=== PATIENT | female | born 1945 | race Caucasian/White ===

== ENCOUNTER → 2023-11-14 11:07 | Outpatient (REF) | payer MEDICARE, BC, SELFPAY | LOC: HWWDC 11:07 | PROVIDERS: ATTENDING PHYSICIAN Internal Medicine | DX: Z12.31 Encounter for screening mammogram for malignant neoplasm of breast (principal) | CPT/HCPCS: 77063; 77067 ==

== ENCOUNTER 2024-05-11 19:38 | Inpatient (IN) | payer MEDICARE, BC, SELFPAY ==
[2024-05-11] VITALS (8 sets, daily range): BP systolic 128–152; BP diastolic 66–94; BMI 25.9
[2024-05-11 16:47] LABS: % Basophils 0.4 % (0-2); % Eosinophils 0.1 % (0-6); % Immature Granulocytes 0.3 % (0-0.5); % Monocytes 13.5 % (1.7-9.3); % Neutrophils 72.7 % (42.2-75.2); Absolute Lymphocytes 1.2 10^3/uL (1.2-3.4); Absolute Monocytes 1.3 10^3/uL (0.1-0.6); Hematocrit 48.2 % (37.0-47.0); Hemoglobin 14.8 g/dL (12.0-16.0); Mean Corp Hgb Conc. 30.7 g/dL (33.0-37.0); Mean Corpuscular Hgb 32.7 pg (27.0-31.0); Mean Corpuscular Volume 106.4 fL (81.0-99.0); Mean Platelet Volume 9.5 fL (7.4-10.4); Nucleated Red Blood Cells % 0 %; Platelet Count 394 10^3/uL (130-400); Red Blood Cell Count 4.53 10^6/uL (4.20-5.40); Red Cell Dist. Width 14.5 % (11.5-14.5); White Blood Cell Count 9.6 10^3/uL (4.8-10.8)
[2024-05-11 17:02] LABS: ALT (SGPT) 52 U/L (0-35); AST (SGOT) 47 U/L (14-36); Albumin 4.1 g/dl (3.5-5.0); Alkaline Phosphatase 71 U/L (38-126); Blood Urea Nitrogen 81 mg/dl (7-17); Calcium 8.2 mg/dl (8.4-10.2); Carbon Dioxide 40 mmol/L (22-30); Chloride 98 mmol/L (98-107); Estimated Creatinine Clearance 28 ml/min; Glucose 115 mg/dl (70-99); Potassium 5.1 mmol/L (3.5-5.1); Sodium 143 mmol/L (135-145); Total Bilirubin 0.4 mg/dl (0.2-1.3); Total Protein 6.8 g/dl (6.3-8.2)
--- NOTE | 2024-05-11 17:02 | ED.GENMED ---
History of Present Illness
General
Chief Complaint: Breathing Problem
Source: patient and ambulance crew
Exam Limitations: none
Time Seen by Provider: 05/11/24 16:53
Nursing documentation reviewed up to this point in time: agreed with
History of Present Illness
History of Present Illness:
78-year-old female presents emergency department complaining of shortness of breath. Oxygen saturation was 85% on room air. She is coming from [facility]. She is not on oxygen at home. She is a history of smoking.
Past History
Past History
ED Past Medical History: Hypercholesterolemia
ED Past Surgical History:
Social History
Tobacco: Smoker
Alcohol: None
Drug: None
Review of Systems
Review of Systems
Allergies reviewed?: Yes
All Other Systems: Not applicable
Constitutional: Reports no symptoms
EENT: Reports no symptoms
Respiratory: Reports cough and trouble breathing
Cardiac: Reports no symptoms
ABD/GI: Reports no symptoms
: Reports no symptoms
Musculoskeletal: Reports no symptoms
Skin: Reports no symptoms
Neurological: Reports no symptoms
Endocrine: Reports no symptoms
Hematologic/Lymphatic: Reports no symptoms
Psychiatric: Reports no symptoms
Phy Exam
Physical Exam
Physical Exam:
Physical Exam
General: Moderate respiratory distress, afebrile
Neck: supple. no meningeal signs. normal posterior pharynx
Heart: s1/s2 regular rate and rhythm, no murmur. equal radial
pulses.
HEENT: Pupils equal round reactive to light, EOMI
Lungs: Moderate respiratory distress. Decreased breath sounds and wheezing bilaterally
Abdomen: normal bowel sounds. not tender. no CVAT
Neuro: alert and oriented. no focal neurological deficits cranial nerves II through XII intact
Skin: no rash
Psychiatric: well kept. interactive and cooperative
Extremities: no edema. no calf tenderness. negative homans. good distal pulses
Scores
Heart Failure Risk
Heart Failure Risk Score: Yes
History of Stroke or TIA: No
History of intubation for respiratory distress: No
Heart rate on ED arrival >/= 110: No
SaO2 <90% on arrival on room air: Yes
HR >/=110 during 3min walk test (or too ill to perform test): Yes
ECG has acute ischemic changes: No
Urea >/=12mmol/L (BUN 33.6mg/dL): Yes
Serum CO2>/=35mmol/L: No
Troponin I or T elevated to PA Level (0.4mg/dL): No
NT-proBNP >/=5,000ng/L (5,000pg/ml): Yes
HF Risk Score: 5
Admission Status: VERY HIGH RISK 39.8% Consider admission to hospital
Course
Orders/Labs/Results
Orders:
Orders
05/11/24 Breakfast
Cholesterol Lowering
Fluid Restriction: 1200 mL/day (40 oz)
Cholesterol Lowering: Sodium, 2 Gram
05/11/24 16:26
Electrocardiogram (*1) Urgent
Reason for Study: Shortness of Breath
EKG- Treatment ONCE
05/11/24 16:36
CMP [Comprehensive Metabolic Panel] Urgent
Complete Blood Count/With Diff Urgent
05/11/24 16:54
CR Chest Portable - 1 View Urgent
Comment:
Reason For Exam: short of breath
Reason Study Needs to be Portable: Patient Unstable
05/11/24 17:31
NT-proBNP Urgent
Troponin I Urgent
05/11/24 18:39
Admit/Transfer Patient As Directed
Co-Sign Provider:
Level of Care: Inpatient admission
Assign to:: Telemetry
Physician / Group: ana
Diagnosis: new onset CHF
Reason for Telemetry: Subacute Heart Failure
Date to Stop Telemetry: 05/13/24
Time to Stop Telemetry: 11:00
Reason for Hospitalization: new onset CHF
Expected length of stay greater than two midnights?: Yes
ELOS- Estimated Length of Stay in days: 3
I certify the patient meets the requirements for IP care: Yes
Code Status As Directed
Resuscitation Status: Do not resuscitate
Reached after discussion with pt or family/Healthcare POA: Yes
Ethacrynate Sodium [Edecrin] 50 mg 0.9% Sodium Chloride 50 ml [Nss] 0 ml IV NOW
DNR Bracelet Application ONCE
PRN Pain Medication Management As Directed
May give lesser potent ordered pain med per pt: Yes
preference::
Protocol:: Medication orders for pain may be administered in a
manner that supports deferring to patient preference
when the pt is:
- Requesting an ordered lesser potent pain medication.
Least to most potent pain medications are defined
as: acetaminophen < NSAID < tramadol < opioids
(morphine, oxycodone, hydromorphone).
- Requesting a lesser dose of the same medication IF
ORDERED.
- Requesting a less intrusive route of administration
if both routes are prescribed by the provider (PO <
IV).
05/11/24 18:40
COVID-19 Antigen Stat
Source: Nasal Swab
Influenza A+B Rapid Molecular Stat
EBONIE Source: Nasal Swab
Specimen Description:
05/11/24 21:15
Heparin 5,000 units SC Q12
05/11/24 21:15
Echo 2D MMode Color/Doppler Routine
Reason for Study: heart failure
CARDIOLOGY CONSULT Routine
Consulting Provider: Ari Brody
Was physician already notified: Yes
HF DIETARY CONSULT Routine
HF EDUCATOR CONSULT Routine
Comment:
Activity As Directed
Activity Level: As Tolerated
Intake/ Output As Directed
Frequency: Per unit guidelines
Patient Education As Directed
Type: CHF folder
Comment: give on admission. Document in Interdisciplinary Education record
Sleep Apnea Assessment by RN As Directed
Comment:
Physician Instructions:
Vital Signs As Directed
Frequency: Other
Additional Instructions:: Q12 or per unit guidelines if more frequent.
Weight As Directed
Frequency: Daily
Type of Scale: Standing Scale
Comment: Daily morning weight. If unable to stand, use balanced bed scale.
Weight As Directed
Frequency: Once
Type of Scale: Standing Scale
Comment: Upon Admission. If unable to stand, use balanced bed scale.
O2 Therapy [RESP] Routine
Titrate/Wean O2 to maintain O2 sat greater than (%): 95
Pulse Ox/cont/shift [RESP] Routine
Quantity: 1
Special Instructions: Daily pulse oximetry at rest. If greater than 92% at rest also obtain pulse oximetry
while ambulating as tolerated.
Pt Eval And Treat Routine
Activity Level: As Tolerated
DX Deep Vein Thrombosis Video Routine
05/11/24 23:30
Troponin I Q6H
Comment: at admission & every 6 hours x 2 (3 total), ECG to be done with each level
05/12/24 05:30
Troponin I Q6H
Comment: at admission & every 6 hours x 2 (3 total), ECG to be done with each level
05/12/24 06:00
Basic Metabolic Panel IN AM
Cardiovascular Evaluation IN AM
Dubfl-Xgmk-Qyxqeat IN AM
Magnesium IN AM
TSH Reflex To Free T4 IN AM
05/12/24 08:00
Calcium Carbonate [Oscal [place] 500] 1,500 mg PO DAILY
Ethacrynate Sodium [Edecrin] 50 mg Empty Viaflex Container 100 ml [Viaflex Empty Container] 0 ml IV DAILY
05/13/24 06:00
Basic Metabolic Panel IN AM
05/13/24 11:00
DC Protocol for Telemetry ONCE
05/14/24 06:00
Basic Metabolic Panel IN AM
Abnormal Lab Results
05/11/24 05/11/24
16:36 17:31
Hct 48.2 H %
(37.0-47.0)
MCV 106.4 H fL
(81.0-99.0)
MCH 32.7 H pg
(27.0-31.0)
MCHC 30.7 L g/dL
(33.0-37.0)
Absolute Neuts (auto) 7.0 H 10^3/uL
(1.4-6.5)
Absolute Monos (auto) 1.3 H 10^3/uL
(0.1-0.6)
Lymphocytes % 13.0 L %
(20.5-51.1)
Monocytes % 13.5 H %
(1.7-9.3)
Carbon Dioxide 40 H mmol/L
(22-30)
BUN 81 H mg/dl
(7-17)
Creatinine 1.6 H mg/dL
(0.6-1.0)
Glucose 115 H mg/dl
(70-99)
Calcium 8.2 L mg/dl
(8.4-10.2)
AST 47 H U/L
(14-36)
ALT 52 H U/L
(0-35)
Troponin I 0.083 H* ng/ml
05/11/24 16:36
05/11/24 16:36
Vital Signs
Initial and Last Documented VS:
Initial Vital Signs
Temp Pulse Resp BP Pulse Ox
98.5 F 96 24 149/81 93
05/11/24 16:04 05/11/24 16:04 05/11/24 16:04 05/11/24 16:04 05/11/24 16:04
Last Documented Vital Signs
Temp Pulse Resp BP Pulse Ox
97.8 F 85 35 150/74 99
05/11/24 21:30 05/11/24 21:30 05/11/24 21:30 05/11/24 21:30 05/11/24 21:30
MDM/Problems Addressed
Differential Diagnosis Includes:
Pneumonia, CHF
MDM/Problems Addressed:
78-year-old female with CHF exacerbation. EKG changes with T wave inversions, denying chest pain at this time. Patient started on ethacrynic acid due to sulfa allergy.
*Radiology
Radiology exam reviewed: radiology read reviewed (Chest x-ray showed possible basilar opacity versus atelectasis)
*Pulse Oximetry
Patient hypoxic: yes
*EKG
Interpreted by ED Provider?: Yes
EKG Intrepretation Date: 05/11/24
EKG Intrepretation Time: 16:48
Interpretation: abnormal
Comparison EKG: changes noted
Heart Rate: 90
Rate: normal
Rhythm: sinus
[place]: normal axis
Interval: normal interval
QRS Pattern: normal QRS
Ischemia: T-wave inversion
*Pesticide Control Inspector Interpretation
Rate: normal
Interpretation: normal
Heart Rate: 88
Rhythm: sinus
*Critical Care Note
Total Time (30-74mins, 75-104mins- exclusive of procedures): 30
Data Reviewed
Further Testing Considered But Not Given:
CT chest not indicated
Patient Management
Social determinants of health affecting care: Living situation and Strong social support
Discussion with other providers: Hospitalist
Escalation/DeEscalation of care consider admission/obs:
Admission indicated
ED Attending Note
-
Portions of this chart may have been created with voice recognition software.� Occasional wrong word or��sound alike� substitutions may have occurred due to the inherent limitations of voice recognition software.
Discharge Plan
Departure
Patient Disposition: Admit
Date of Disposition: 05/11/24
Time of Disposition: 18:21
Admit to: Telemetry
Presentation/result/management discussed w/ accepting MD/DO: Hospitalist
Patient with high blood pressure during this ER visit?: Yes
Condition: Fair
Discharge Problem:
Acute exacerbation of CHF (congestive heart failure)
Interventions
Interventions:
*Risk Screen - Suicide Last Done: 05/11/24 22:02
*General Assessment Last Done: 05/11/24 16:04
*Neglect/Abuse Screening Last Done: 05/11/24 16:04
*ED COVID-19 Vaccine History Last Done: 05/11/24 16:04
*Nursing Disposition Last Done: 05/11/24 21:13
ED- Cardiac Assessment Last Done: 05/11/24 16:24
ED- Pulmonary Assessment Last Done: 05/11/24 16:24
Discharge Date and Time
Discharge Date/Time: 05/11/24 21:15
[2024-05-11 18:06] LABS: NT-proBNP 9060 pg/ml; Troponin I 0.083 ng/ml
--- NOTE | 2024-05-11 18:22 | HPS.HSE ---
Family Physician
-
Family Physician: RUBEN WALLS MD
Chief Complaint
-
Short of breath
History of Present Illness
78-year-old female with past medical history for PAD, PVD, breast cancer presented to us with short of breath for past few days. Short of breath worse with exertion. Patient denied any chest pain. Patient denied lower extremities edema. denied
headache, dizziness or syncope. Patient denied fever, chills, cough, congestion. Patient denied abdominal pain, nausea, vomiting, diarrhea. Patient denied dysuria hematuria,
Noted to have elevated BNP, chest x-ray with impression of small patchy right basilar opacity suggestive, no atelectasis and/or pneumonia. Patient is requiring 6 L.
Admitting for further management.
Medical History
Past Medical History
Past Medical History: Reports Other
Additional Past Medical History:
Peripheral artery disease
PVD
Breast cancer
Psoriasis
Osteoporosis
Past Surgical History: Reports Other
Additional Past Surgical History:
Left breast lumpectomy
Tonsillectomy
Lower lower EXTR and stent
Social History
Tobacco: Former Smoker
Alcohol: None
Drug: None
Living: Assisted Living
Family History
Family History: Not pertinent
Allergies / Home Medications
Allergies reflects when Allergies were last updated in [facility]
Home Medications with original date entered in [facility]
Allergy/Medication List:
Allergies
Allergy/AdvReac Type Severity Reaction Status Date / Time
acetaminophen [From Percocet] Allergy constipatio Verified 10/31/19 06:31
n
aspirin [From Percodan] Allergy constipatio Verified 10/31/19 06:31
n
oxycodone HCl [From Percocet] Allergy constipatio Verified 10/31/19 06:31
n
oxycodone terephthalate Allergy constipatio Verified 10/31/19 06:31
[From Percodan] n
Sulfa (Sulfonamide Allergy stopped Verified 10/31/19 06:31
Antibiotics) breathing
Home Medications
denosumab 60 mg/mL subcutaneous syringe (Prolia) 60 mg SQ [id number] 10/31/19
calcium carbonate (Calcium 600) 600 mg PO DAILY 05/11/24
Review of Systems
-
Constitutional: Reports No Symptoms
EENT: Reports No Symptoms
Respiratory: Reports Trouble Breathing
Cardiac: Reports No Symptoms
Abdomen/GI: Reports No Symptoms
: Reports No Symptoms
Musculoskeletal: Reports No Symptoms
Skin: Reports No Symptoms
Neurological: Reports No Symptoms
Endocrine: Reports No Symptoms
Hematologic/Lymphatic: Reports No Symptoms
Psych: Reports No Symptoms
Physical Exam
Vital Signs
Vital Signs
Temp Pulse Resp BP Pulse Ox
98.5 F 87 31 136/94 96
05/11/24 16:04 05/11/24 18:00 05/11/24 18:00 05/11/24 18:00 05/11/24 18:00
Physical Exam
General: Well Developed, Well Nourished and No Apparent Distress
HEENT: NormoCephalic, Moist mucous membranes and Atraumatic
Respiratory: Decreased Breath Sounds
Cardiac: S1/S2 and Regular Rhythm; No Murmur or Rub
GI: Soft, Non Tender, Non Distended and Normal Bowel Sounds; No Organomegaly
Rectal: Deferred by Provider
Musculoskeletal: No Clubbing, No Cyanosis and No Edema
Skin: No Rash
Neuro: AO x 3 and Nonfocal/grossly intact
Psych: Calm
Laboratory Results
-
05/11/24 16:36
05/11/24 16:36
Laboratory Results
Total Bilirubin 0.4 mg/dl (0.2-1.3) 05/11/24 16:36
AST 47 U/L (14-36) H 05/11/24 16:36
ALT 52 U/L (0-35) H 05/11/24 16:36
Alkaline Phosphatase 71 U/L (38-126) 05/11/24 16:36
Troponin I 0.083 ng/ml H* 05/11/24 17:31
Data Reviewed
-
Diagnostic Radiology: Report Reviewed by me
Lab Data: Labs Reviewed by me
Impression/Plan
-
# Acute hypoxic respiratory failure likely from new onset CHF
-BNP 9060
-Chest x-ray with impression of small patchy right basilar opacity such as segmental atelectasis and/or pneumonia
-Patient requiring 6 L of oxygen
-Continue supplemental oxygen to keep sat 80-92
-Wean as tolerated
-Diuretics continued
-Strict SU-Daily weight
-Fluid restriction
-Obtain echo
-Cardiology consulted
Acute kidney injury likely from fluid overload
-Creatinine 1.6
-Continue to monitor
# Hepatic congestion
-AST 47, ALT 52
-Patient denied any abdominal pain
-Continue to monitor
# Troponin elevation likely demand ischemia from CHF
-Trop 0.0 83
-Patient denied chest pain
-Continue to trend Trope EKG with impression of normal sinus rhythm with sinus arrhythmia
History of PAD/PVD
#DVT prophylaxis
-Heparin subcu
# CODE STATUS
-DNR
--- NOTE | 2024-05-11 18:45 | W.PN.UPDATE ---
Update Note
Progress Note Update
This is an addendum to the H&P written by Emily Kim on 05/11/2024. Patient seen and examined independently with TITLE CHECKER.
78-year-old female past medical history of peripheral arterial disease status post angioplasty/left SFA stent, carotid stenosis, breast cancer presenting with shortness of breath.
Patient requiring 6 L oxygen.
Labs show SAVAGE with creatinine 1.6. Mild transaminitis. Cardiac BNP of 9000. Troponin 0.083. EKG shows normal sinus rhythm with sinus arrhythmia, T wave inversions.
Chest x-ray shows small patchy right basilar opacity such as subsegmental atelectasis/pneumonia.
Diminished air entry on bilateral examination. She has JVD.
Presentation consistent with acute hypoxemic respiratory failure secondary to acute CHF exacerbation with cardiorenal syndrome. No clear-cut evidence to suggest pneumonia.
Check COVID and influenza. 50 IV ethacrynic acid daily. Check echocardiogram. Cardiology consulted.
[2024-05-11 19:17] LABS: COVID-19 Antigen Negative (Negative)
[2024-05-11] MEDS: EDECRIN 50 MG IV (19:47)
--- NOTE | 2024-05-11 21:30 | PTCARENOTE ---
Patient admitted from the ED. Patient was a pullover into bed. Patient AAOx2. Patient is able to state needs. Call blake within reach. Patient is on a cholesterol lowering 2 gram sodium diet with a 1200 ml fluid restriction. Patient is on a bed
alarm. Will continue with current plan.
[2024-05-11] MEDS: HEPARIN 5000 UNITS SC (21:45)
[2024-05-12] VITALS (7 sets, daily range): BP systolic 118–145; BP diastolic 56–79; PULSE 89; O2SAT 86; BMI 25.6
[2024-05-12 00:43] LABS: Troponin I 0.106 ng/ml
--- NOTE | 2024-05-12 01:00 | PTCARENOTE ---
Troponin level came back higher. EKG now saying cannot rule out anterior infarct. Next troponin scheduled for 5:30 am. Emani NIELSON notified. No further orders.
[2024-05-12 07:25] LABS: ALT (SGPT) 54 U/L (0-35); AST (SGOT) 44 U/L (14-36); Albumin 4.1 g/dl (3.5-5.0); Alkaline Phosphatase 67 U/L (38-126); Blood Urea Nitrogen 74 mg/dl (7-17); Chloride 98 mmol/L (98-107); Direct Bilirubin 0.2 mg/dl (0.0-0.4); Estimated Creatinine Clearance 33 ml/min; Glucose 104 mg/dl (70-99); HDL Cholesterol 44 mg/dl; LDL Cholesterol, Calculated 117 mg/dl; Magnesium 2.6 mg/dl (1.6-2.3); Potassium 5.1 mmol/L (3.5-5.1); Sodium 146 mmol/L (135-145); Total Bilirubin 0.6 mg/dl (0.2-1.3); Total Cholesterol 184 mg/dl (50-199); Total Protein 6.7 g/dl (6.3-8.2); Triglyceride 115 mg/dl (10-149); Very Low Density Lipoprotein 23 mg/dl (0-30); eGFR 41.83
[2024-05-12 07:31] LABS: Troponin I 0.091 ng/ml
[2024-05-12 07:34] LABS: Carbon Dioxide 33 mmol/L (22-30)
[2024-05-12 07:54] LABS: TSH Reflex To Free T4 1.31 uIU/ml (0.47-4.68)
[2024-05-12] MEDS: OSCAL CAL 500 1500 MG PO (09:10)
[2024-05-12] MEDS: EDECRIN 50 MG PO (09:10)
[2024-05-12] MEDS: HEPARIN 5000 UNITS SC ×2 (09:11→20:24)
--- NOTE | 2024-05-12 10:52 | CM ---
Addendum entered by Kaylee Meneses 05/12/24 15:14:
Per daughter she states [facility] - updated in [facility]
Original Note:
Patient seen at bedside.
IA completed
Spoke with daughter Sheri CARR (lives in [place])
Resides at [facility] ([facility])
Spoke with Heather at [facility]
PLOF: wheelchair, self propels
Per daughter patient chooses to use wheelchair
Has been non-adherent in past with medications
DME: Wheelchair
Has had -[facility]/Has been at [facility]
PT to eval
PCP: Rodney Bangura
PLAN: Await PT eval
--- NOTE | 2024-05-12 11:03 | CON.CAR ---
Consultation
Consultation Request
Date/Time Consultation Requested: 05/12/24, 7am
Date/Time Consultation Performed: 05/12/24, 10am
Requesting Provider: Live
Performing Provider: Mary Grace
Reason for Consultation: heart failure
Medical History
-
Chief Complaint: SOB, hypoxia
History of Present Illness:
78 yo female with PMH of PAD s/p left SFA stent, hyperlipidemia, current tobacco (' I will never quit) presents to ED with SOB, hypoxia. Found to have SAVAGE, elevated troponin. We are consulted for acute HF.
She denies chest pain.
Past Medical History
Past Medical History: Hypercholesterolemia and Other (PAD)
Past Surgical History: Other (vascular: left SFA stent)
Social History
Tobacco: Smoker
Family History
Family History: Other (sudden cardiac in father, age 60)
Allergies / Home Medications
Allergy/AdvReac Type Severity Reaction Status Date / Time
acetaminophen [From Percocet] Allergy constipatio Verified 10/31/19 06:31
n
aspirin [From Percodan] Allergy constipatio Verified 10/31/19 06:31
n
oxycodone HCl [From Percocet] Allergy constipatio Verified 10/31/19 06:31
n
oxycodone terephthalate Allergy constipatio Verified 10/31/19 06:31
[From Percodan] n
Sulfa (Sulfonamide Allergy stopped Verified 10/31/19 06:31
Antibiotics) breathing
�Medication �Instructions �Recorded �Confirmed �Type
denosumab 60 mg/mL subcutaneous 60 mg SQ [id number] Autoimmune 10/31/19 05/11/24 History
syringe (Prolia) Disorder
calcium carbonate (Calcium 600) 600 mg PO DAILY Supplement 05/11/24 05/11/24 History
Review of Systems
-
All other systems: Negative unless noted
Constitutional: Fatigue
Respiratory: Trouble Breathing
Physical Exam
Vital Signs
Temp Pulse Resp BP Pulse Ox
97.8 F 87 18 121/64 98
05/12/24 07:30 05/12/24 07:30 05/12/24 07:30 05/12/24 07:30 05/12/24 07:30
Lab Results
05/11/24 16:36
05/12/24 06:22
Troponin I 0.091 ng/ml H* 05/12/24 06:22
Igo-T-Mkuppcdzipt Pept 9060 pg/ml 05/11/24 17:31
Physical Exam
General: Comfortable
HEENT: Normocephalic and Anicteric
Respiratory: Wheezes and Non Labored Respirations
Cardiac: S1/S2 (normal), Regular Rhythm, Murmur (I/ systolic at RUSB) and Peripheral Edema (trace)
Musculoskeletal: No Clubbing, No Cyanosis and Edema (trace)
Neuro: Awake and Alert
Psych: Calm
Impression / Plan
-
78 yo female with PMH of PAD s/p left SFA stent, hyperlipidemia, current tobacco (' I will never quit) presents to ED with SOB, hypoxia. Found to have SAVAGE, elevated troponin. We are consulted for acute HF.
# SOB, hypoxia
-likely multifactorial: I suspect she has lung disease give lifelong tobacco with no plans to quit
# Acute HF
-check echo for LVEF
-diurese with ethacrynic acid given severe sulfa allergy
-monitor labs, tele, weight
# Elevated troponin
-suspect acute non-ischemic myocardial injury in setting of acute HF, peak 0.1
-no CP, but EKG is abnormal with anterolateral TWI
-check echo
# SAVAGE vs CKD
-monitor with diuresis
# PAD, left SFA stent
-should be on ASA/statin: started
Data Reviewed
-
EKG: Tracing Personally Visualized and interpreted (NSR, anterolateral TWI) and Other (tele: SR 70s)
Labs: Labs Reviewed by me
[2024-05-12] MEDS: LOW STRENGTH ASPIRIN 81 MG PO (12:27)
[2024-05-12] MEDS: DELTASONE 40 MG PO (12:27)
--- NOTE | 2024-05-12 14:42 | W.PN.HOSP.TC ---
Today's Communication/Plan
-
see note
Assessment / Plan
Assessment / Plan
# Acute hypoxic respiratory failure
-likely from new onset CHF vs COPD
-BNP 9060
-Chest x-ray with impression of small patchy right basilar opacity such as segmental atelectasis and/or pneumonia
-Strict SU-Daily weight
-Cardiology consulted
-TTE pending.
-May have to hold diuretic tomorrow as patient already hypernatremic
# Active tobacco use
Possible COPD
-Patient have decreased air entry with minimal wheezing
-Chest x-ray reviewed
-Maintain on empiric steroids/nebulizer therapy
-Nicorette gum ordered for cream
#Acute kidney injury likely from fluid overload
-Creatinine 1.6 at admit, improving
-Not on nephrotoxic medication
-Bladder scan/straight cath ordered
-Continue to monitor
#Hypernatremia
-Patient sodium on the higher side 146
-Discussed with cardiology for potentially holding diuretics 24 hours and monitor
# Hepatic congestion
-AST 47, ALT 52
-Patient denied any abdominal pain
-Continue to monitor
# Troponin elevation likely demand ischemia from CHF
-Trop 0.08 > 0.09
-Patient denied chest pain
-Continue to trend Trope EKG with impression of normal sinus rhythm with sinus arrhythmia
History of PAD/PVD
DVT prophylaxis -Heparin subcu
CODE STATUS-DNR
Total time spent : 53 mins
I personally saw and examined the patient.
I have reviewed all diagnostic interpretations and treatment plans as written.
Time includes patient management by me, time spent at the patients bedside, time to review lab and imaging results, discussing patient care, documentation in the medical record, and time spent with the family or caregiver and discussing care plan
with RN/Consultants.
Anticipated Discharge: 24 - 48 hours
Subjective/Interval History
-
Date of Service: May 12, 2024
Patient dyspneic and have to stop in between while talking
o2 requirement stable on 4L o2 through NC
Objective Data
-
Labs:
Laboratory Results
05/12/24
06:22
Sodium 146 H
Potassium 5.1
Chloride 98
Carbon Dioxide 33 H
BUN 74 H
Creatinine 1.3 H
Glucose 104 H
Calcium 8.0 L
Total Bilirubin 0.6
AST 44 H
ALT 54 H
Alkaline Phosphatase 67
Vital Signs:
Vital Signs
Temp Pulse Resp BP Pulse Ox
98.3 F 82 18 120/59 93
05/12/24 11:34 05/12/24 11:34 05/12/24 11:34 05/12/24 11:34 05/12/24 12:27
Review of Systems
-
Respiratory: Denies Cough, Hemoptysis, Trouble Breathing or Wheezing
Cardiac: Reports No Symptoms
Abdomen/GI: Reports No Symptoms
Physical Exam
-
General: No Apparent Distress and Comfortable
HEENT: Oxygen (4L NC)
Respiratory: Wheezes
Cardiac: Regular Rhythm and S1/S2; Negative Murmur or Rub
GI: Soft, Nontender and Nondistended
Musculoskeletal: No Edema
Neuro: Awake, Alert, Oriented, No Motor Deficits and Nonfocal/Grossly Intact
Psych: Calm
[2024-05-12] MEDS: CRESTOR 20 MG PO (17:17)
[2024-05-13 02:56] VITALS: BP 129/58
[2024-05-13 06:00] VITALS: BMI 25.4
[2024-05-13 07:45] VITALS: BP 118/77
[2024-05-13] MEDS: LOW STRENGTH ASPIRIN 81 MG PO (08:08)
[2024-05-13] MEDS: DELTASONE 40 MG PO (08:08)
[2024-05-13] MEDS: HEPARIN 5000 UNITS SC ×2 (08:08→20:53)
[2024-05-13] MEDS: OSCAL CAL 500 1500 MG PO (08:08)
[2024-05-13 09:06] LABS: Blood Urea Nitrogen 62 mg/dl (7-17); Chloride 96 mmol/L (98-107); Estimated Creatinine Clearance 39 ml/min; Glucose 94 mg/dl (70-99); Potassium 4.5 mmol/L (3.5-5.1); Sodium 141 mmol/L (135-145); eGFR 51.11
--- NOTE | 2024-05-13 09:13 | W.PN.HOSP.TC ---
Today's Communication/Plan
-
see bold
Assessment / Plan
Assessment / Plan
#Acute hypoxic respiratory failure
From new onset CHF vs COPD
Currently requiring 6 L of oxygen, wean as tolerated
#Acute COPD exacerbation
#Cigarette nicotine dependency
Discontinue prednisone, start IV steroids, bronchodilators
Consult pulmonology, start nicotine patch
#Acute heart failure with a preserved ejection fraction
Appreciate cardiology input, resolved with ethacrynic acid
Recommend ethacrynic acid as needed
#Acute kidney injury likely from fluid overload
-Creatinine 1.6 at admit, improving
-Not on nephrotoxic medication
-Bladder scan/straight cath ordered
-Continue to monitor
#Hypernatremia
-Patient sodium on the higher side 146, resolved with ethacrynic acid
# Hepatic congestion
-AST 47, ALT 52
-Patient denied any abdominal pain
-Continue to monitor
# Troponin elevation likely demand ischemia from CHF
-Trop 0.08 > 0.09
-Patient denied chest pain
-Continue to trend Trope EKG with impression of normal sinus rhythm with sinus arrhythmia
History of PAD/PVD
DVT prophylaxis -subcu Lovenox
DNR
Total time spent to see the patient on the floor, examine the patient, review data and lab results, discuss treatment plan with patient, nursing staff around 51 minutes.
Physical Exam
General: Appears chronically ill, no acute distress
HEENT: Normocephalic, Atraumatic, EOMI, MMM
Respiratory: Diminished breath sounds in all lung alvarez diffusely
Cardiac: Normal S1/S2, Regular Rate and Rhythm
GI: Soft, Nontender, Nondistended, Normal Bowel Sounds
Extremities: No Clubbing, Cyanosis, or Edema
Neuro: Nonfocal/Grossly Intact
Anticipated Discharge: 24 - 48 hours
Subjective/Interval History
-
Date of Service: May 13, 2024
Patient denies shortness of breath. No fever, no vomiting.
Objective Data
-
Labs:
Laboratory Results
05/13/24
07:56
Sodium 141
Potassium 4.5
Chloride 96 L
Carbon Dioxide Pending
BUN 62 H
Creatinine 1.1 H
Glucose 94
Calcium 8.0 L
Vital Signs:
Vital Signs
Temp Pulse Resp BP Pulse Ox
98.3 F 69 18 118/77 91
05/13/24 07:45 05/13/24 07:45 05/13/24 07:45 05/13/24 07:45 05/13/24 07:45
I&O
05/12/24 05/13/24 05/14/24
06:59 06:59 06:59
Intake Total 350 / 350
Balance 350 / 350
[2024-05-13 09:16] LABS: Carbon Dioxide 38 mmol/L (22-30)
[2024-05-13 11:07] VITALS: BP 139/61
[2024-05-13] MEDS: PULMICORT 0.5 MG INH ×2 (11:26→20:25)
[2024-05-13] MEDS: NICODERM TRANSDERMAL 14 MG TRANSDERM (11:29)
[2024-05-13] MEDS: DECADRON 4 MG IV ×2 (11:29→23:09)
--- NOTE | 2024-05-13 13:05 | W.PN.CD ---
Today's Communication / Plan
-
appears euvolemic: would make diuretic prn when ready for discharge
small pericardial effusion: discussed lung cancer screening with hospitalist given tobacco history
please call us back with additional questions
Impression / Plan
-
78 yo female with PMH of PAD s/p left SFA stent, hyperlipidemia, current tobacco (' I will never quit) presents to ED with SOB, hypoxia. Found to have SAVAGE, elevated troponin. We are consulted for acute HF.
# SOB, hypoxia
-likely multifactorial: I suspect she has lung disease give lifelong tobacco with no plans to quit
-lung disease likely major contributor
# Acute HFPEF
-resolved s/p diuretic
-she can take diuretic (ethacrynic acid) as needed
# Pericardial effusion
-small without evidence of hemodynamic significance
-given extensive tobacco history, recommended lung cancer screening to hospitalist team
# Elevated troponin
-acute non-ischemic myocardial injury in setting of acute HF, peak 0.1
-no CP, but EKG is abnormal with anterolateral TWI
-echo: EF 55-60%, aortic sclerosis
# SAVAGE vs CKD
-monitor with diuresis
# PAD, left SFA stent
-should be on ASA/statin: started
Physical Exam
Vital Signs/Labs
Vital Signs
Temp Pulse Resp BP Pulse Ox
98.7 F 63 18 139/61 96
05/13/24 11:07 05/13/24 11:28 05/13/24 11:28 05/13/24 11:07 05/13/24 11:28
05/12/24 05/13/24 05/14/24
06:59 06:59 06:59
Actual Weight 71.838 kg 71.412 kg
05/11/24 16:36
05/13/24 07:56
Magnesium 2.6 mg/dl (1.6-2.3) H 05/12/24 06:22
Triglycerides 115 mg/dl (10-149) 05/12/24 06:22
LDL Cholesterol, Calc 117 mg/dl 05/12/24 06:22
VLDL Cholesterol, Calc 23 mg/dl (0-30) 05/12/24 06:22
HDL Cholesterol 44 mg/dl 05/12/24 06:22
05/11/24
17:31
[id number]-V-[id number] Pept 9060
LAB Results
05/11/24 05/11/24 05/12/24
17:31 23:56 06:22
Troponin I 0.083 H* 0.106 H* D 0.091 H*
Physical Exam
Constitutional: No acute distress and Comfortable
EENT: Moist mucous membranes
Cardiovascular: Rhythm & rate is regular, Pedal edema is absent, JVD pressure is normal and Systolic murmur absent
Respiratory: Respiratory effort normal and Wheeze Present
Neuro/Psych: AO x 3
Data Reviewed
-
Date of Service: May 13, 2024
EKG: Other (Tele: SR, PAC's, PVC's, brief SVT)
Echo: Tracing Personally Visualized and interpreted (normal LVEF, small pericardial effusion)
Labs: Labs Reviewed by me
--- NOTE | 2024-05-13 13:10 | CM ---
Chart reviewed and recommendation from physical therapy is for skilled placement, per admission notes patient was at [facility] ([facility]) in past. Will review skilled options with patient. Patient was admitted from [facility] assisted living.
Plan; Possible skilled placement.
--- NOTE | 2024-05-13 14:49 | CON.PUL ---
Consultation
Consultation Request
Date/Time Consultation Requested: 05/13/2024
Date/Time Consultation Performed: 05/13/2024
Requesting Provider: Dr. Oliveros
Performing Provider: Dr.Manuel Aguilar
Reason for Consultation: Acute hypoxemic respiratory failure
Medical History
-
History of Present Illness:
78-year-old woman with past medical history significant for peripheral arterial disease, breast cancer who presented to the emergency room on 05/11/2024 complaining of shortness of breath for the last few days.
Patient mainly has shortness of breath with activity. Denies any PND, orthopnea leg edema. Denied exertional chest pain. Denies any fevers, chills or feeling sick.
She was noted to have elevated proBNP. Patient was found to be hypoxemic requiring up to 6 L supplemental oxygen.
Past Medical History
Past Medical History: Other (See assessment and plan)
Social History
Tobacco: Former Smoker
Alcohol: None
Drug: None
Living: Assisted Living
Family History
Family History: Reviewed & Not Pertinent
Allergies / Home Medications
Allergies
Allergy/AdvReac Type Severity Reaction Status Date / Time
acetaminophen [From Percocet] Allergy constipatio Verified 10/31/19 06:31
n
aspirin [From Percodan] Allergy constipatio Verified 10/31/19 06:31
n
oxycodone HCl [From Percocet] Allergy constipatio Verified 10/31/19 06:31
n
oxycodone terephthalate Allergy constipatio Verified 10/31/19 06:31
[From Percodan] n
Sulfa (Sulfonamide Allergy stopped Verified 10/31/19 06:31
Antibiotics) breathing
Home Medications
�Medication �Instructions �Recorded �Confirmed �Last Taken �Type
denosumab 60 mg/mL subcutaneous 60 mg SQ [id number] Autoimmune 10/31/19 05/11/24 Unknown History
syringe (Prolia) Disorder
calcium carbonate (Calcium 600) 600 mg PO DAILY Supplement 05/11/24 05/11/24 Unknown History
Review of Systems
-
History Source: Patient
All other systems: Negative unless noted
Vitals / Labs / Diagnostic Testing
Vital Signs
Temp Pulse Resp BP Pulse Ox
98.7 F 63 18 139/61 96
05/13/24 11:07 05/13/24 11:28 05/13/24 11:28 05/13/24 11:07 05/13/24 11:28
Lab Data
05/11/24 16:36
05/13/24 07:56
Microbiology
05/12/24 07:12 Nose MRSA Screen - Final
No Methicillin Resistant Staphylococcus aureus isolated.
05/11/24 18:40 Nasal Swab Influenza Types A & B (KOKI) - Final
Negative for Influenza A & B, NAAT
Negative results must be combined with clinical observations
and patient history.
Nucleic Acid Amplification test (NAAT)performed on the
[employer] platform.
Diagnostic Testing:
Physical Exam
-
HEENT: Normocephalic
Cardiovascular: S1/S2
Respiratory: Non-Labored Respirations, Other (Scattered squeaks) and Other (Diminished breath sounds on exam)
GI: Soft and Non Distended
Neurology: Awake, Alert, Oriented and AO x 3
Skin: Warm
General: Comfortable
Assessment
-
78-year-old woman admitted with shortness of breath, found to be hypoxemic. On admission proBNP was elevated, patient being diuresed. Evaluated for heart failure. She is an active smoker. She was found to have diminished breath sounds
bilaterally. We were consulted on 05/13/2024 for possible COPD evaluation and management.
Acute hypoxemic respiratory failure-requiring 6 L supplemental oxygen
Acute heart failure suspected-increased proBNP up to 9000
EKG normal sinus rhythm. Nonspecific T wave abnormalities.
Echocardiogram-05/13/2024: Reviewed, normal LVEF. Aortic sclerosis without stenosis. Small pericardial effusion.
Mild troponin leak-demand ischemia
Possible COPD exacerbation as well
Conditions present prior admission:
History of breast cancer
Psoriasis
Osteoporosis
Peripheral vascular disease
Peripheral arterial disease
History of left breast lumpectomy
Tonsillectomy
Status post left lower extremity stent/angioplasty.
History of carotid artery stenosis
Tobacco abuse
Assessment and plan:
Hypoxemic respiratory failure likely multifactorial. With increased proBNP heart failure with preserved ejection fraction status post diuresis.
Likely has COPD given ongoing smoking. Diminished breath sounds bilaterally with bilateral squeaks.
Continue IV corticosteroids-dexamethasone 4 mg IV every 12
Pulmicort twice a day
Will add DuoNebs 3 times a day
Outpatient pulmonary evaluation recommended with pulmonary function testing
Home oxygen assessment tomorrow currently on 4 L. She does not appear toxic. Comfortably laying in bed. Able to speak in full sentences.
-
Chest x-ray with scoliosis, right lower lobe abnormality possibly atelectasis.
Currently no signs of acute infection
Small pericardial effusion noted-on echocardiogram. Unclear etiology.
Per Medicare guidelines patient does not qualify for lung cancer screening.
To evaluate parenchyma better specifically the right lower lobe in the setting of pericardial effusion will obtain a CT of the chest without IV contrast. Order has been placed
-
Wean FiO2-Home oxygen assessment tomorrow
-
Smoking cessation encouraged
Nicotine patch in place
-
Will follow
Information to follow-up has been left in the chart.
[2024-05-13 15:00] VITALS: BP 115/51
--- NOTE | 2024-05-13 15:10 | PTCARENOTE ---
pt agitated with intermit. confusion. removing tele alarm. putting on her clothes, demanding to leave for a cigarette. reviewed continued need for 02, and now IV steroids and occupational health coordinator. Reviewed AMA. Pt states she will stay. nicotine patch
added. S/W dtr on phone who reports this is baseline behavior and that pt also has HX of being combative. reassurance provided, Tele D/C'd per hospitalist. CB in reach.
[2024-05-13] MEDS: DUONEB INH (15:47)
[2024-05-13] MEDS: CRESTOR 20 MG PO (17:31)
[2024-05-13] MEDS: DUONEB 3 ML INH (20:24)
[2024-05-13 23:19] VITALS: BP 137/78
[2024-05-14 06:00] VITALS: BMI 25.7
[2024-05-14] MEDS: PULMICORT 0.5 MG INH (06:07)
[2024-05-14] MEDS: DUONEB 3 ML INH ×2 (06:07→13:23)
[2024-05-14] MEDS: OSCAL CAL 500 1500 MG PO (07:52)
[2024-05-14] MEDS: LOW STRENGTH ASPIRIN 81 MG PO (07:52)
[2024-05-14 07:54] VITALS: BP 135/65
[2024-05-14] MEDS: NICODERM TRANSDERMAL 14 MG TRANSDERM (07:55)
[2024-05-14] MEDS: HEPARIN 5000 UNITS SC (07:55)
[2024-05-14 08:38] LABS: Blood Urea Nitrogen 60 mg/dl (7-17); Calcium 8.6 mg/dl (8.4-10.2); Chloride 94 mmol/L (98-107); Estimated Creatinine Clearance 53 ml/min; Glucose 126 mg/dl (70-99); Potassium 5.2 mmol/L (3.5-5.1); Sodium 141 mmol/L (135-145); eGFR > 60.00
[2024-05-14 08:59] LABS: Carbon Dioxide 37 mmol/L (22-30)
--- NOTE | 2024-05-14 10:12 | W.PN.HOSP.TC ---
Today's Communication/Plan
-
see bold
Assessment / Plan
Assessment / Plan
#Acute hypoxic respiratory failure
From new onset CHF vs COPD
Currently requiring 2 L, down 6 L of oxygen, wean as tolerated
Check home oxygen prescription eval prior to dc
From [facility]
#Acute COPD exacerbation
#Cigarette nicotine dependency
Discontinue prednisone, wean IV steroids, bronchodilators
Started nicotine patch, patient adamant on not quitting
Recommend discharge on bronchodilators
#Acute heart failure with a preserved ejection fraction
Appreciate cardiology input, resolved with ethacrynic acid
Recommend ethacrynic acid as needed
#Acute kidney injury likely from fluid overload
-Creatinine 1.6 at admit, resolved
-Not on nephrotoxic medication
-Bladder scan/straight cath ordered
-Continue to monitor
#Hypernatremia
-Resolved with ethacrynic acid
#Hyperkalemia
Potassium 5.2, low potassium diet, trend
# Hepatic congestion
-AST 47, ALT 52
-Patient denied any abdominal pain
-Continue to monitor
# Troponin elevation likely demand ischemia from CHF
-Trop 0.08 > 0.09
-Patient denied chest pain
-Continue to trend Trope EKG with impression of normal sinus rhythm with sinus arrhythmia
History of PAD/PVD
DVT prophylaxis -subcu Lovenox
DNR
Updated daughter/POA who lives in [place] on phone 05/14
Total time spent to see the patient on the floor, examine the patient, review data and lab results, discuss treatment plan with patient, nursing staff around 51 minutes.
Physical Exam
General: Appears chronically ill, no acute distress
HEENT: Normocephalic, Atraumatic, EOMI, MMM
Respiratory: Diminished breath sounds in all lung alvarez diffusely
Cardiac: Normal S1/S2, Regular Rate and Rhythm
GI: Soft, Nontender, Nondistended, Normal Bowel Sounds
Extremities: No Clubbing, Cyanosis, or Edema
Neuro: Nonfocal/Grossly Intact
Anticipated Discharge: Within 24 hours
Subjective/Interval History
-
Date of Service: May 14, 2024
Patient denies chest pain, shortness of breath, coughing, wheezing. No fever, no vomiting.
Objective Data
-
Labs:
Laboratory Results
05/14/24
07:41
Sodium 141
Potassium 5.2 H
Chloride 94 L
Carbon Dioxide 37 H
BUN 60 H
Creatinine 0.8
Glucose 126 H
Calcium 8.6
Vital Signs:
Vital Signs
Temp Pulse Resp BP Pulse Ox
97.9 F 71 22 135/65 100
05/14/24 07:54 05/14/24 07:54 05/14/24 07:54 05/14/24 07:54 05/14/24 07:54
I&O
05/13/24 05/14/24 05/15/24
06:59 06:59 06:59
Intake Total 350 / 590 1320 / 1320
Balance 350 / 590 1320 / 1320
[2024-05-14 10:14] VITALS: O2SAT 95
--- NOTE | 2024-05-14 11:28 | CM ---
Per PT, pt is not requiring skilled rehab at this time. Pt is WC level which is her baseline.
Pt is currently on 2L O2, per hospitalist, will test O2 for home tomorrow
Poss d/c tomorrow, watch for any O2 needs.
Plan: Return to [facility]
[2024-05-14] MEDS: DECADRON 4 MG IV (11:30)
--- NOTE | 2024-05-14 13:13 | W.PN.PUL3 ---
Today's Communication / Plan
-
Continue nebulizers: Pulmicort/DuoNebs
Continue IV dexamethasone without change for today
Incentive spirometry
Increase activity as able
Wean off FiO2
Still on 2 L NC
Will obtain home oxygen assessment tomorrow morning. Discussed with respiratory care.
She does not take any inhalers at home
Upon discharge, the most cost effective way will be to discharge her on nebulizers with DuoNebs 3-4 times a day until seen in our office.
Hopefully discharge in the next 24 hours
Assessment
-
78-year-old woman admitted with shortness of breath, found to be hypoxemic. On admission proBNP was elevated, patient being diuresed. Evaluated for heart failure. She is an active smoker. She was found to have diminished breath sounds
bilaterally. We were consulted on 05/13/2024 for possible COPD evaluation and management.
Acute hypoxemic respiratory failure-requiring 6 L supplemental oxygen
Acute heart failure suspected-increased proBNP up to 9000
EKG normal sinus rhythm. Nonspecific T wave abnormalities.
Echocardiogram-05/13/2024: Reviewed, normal LVEF. Aortic sclerosis without stenosis. Small pericardial effusion.
Mild troponin leak-demand ischemia
Possible COPD exacerbation as well
Conditions present prior admission:
History of breast cancer
Psoriasis
Osteoporosis
Peripheral vascular disease
Peripheral arterial disease
History of left breast lumpectomy
Tonsillectomy
Status post left lower extremity stent/angioplasty.
History of carotid artery stenosis
Tobacco abuse
Assessment and plan:
Hypoxemic respiratory failure likely multifactorial. With increased proBNP heart failure with preserved ejection fraction status post diuresis.
Cardiology has signed off.
-
Likely has COPD given ongoing smoking. Diminished breath sounds bilaterally with bilateral squeaks.
Reduce dexamethasone to 2 mg IV every 12. Tomorrow transition to prednisone 30 mg and decrease by 10 mg every 72 hours to off.
Pulmicort twice a day-while in the hospital.
Continue DuoNebs 3 times a day.
She does not take any inhalers at home.
Outpatient pulmonary evaluation recommended with pulmonary function testing
Home oxygen assessment prior to discharge, currently on2 L. She does not appear toxic. Comfortably laying in bed. Able to speak in full sentences. Lung exam with better air movement today.
-
Chest x-ray with scoliosis, right lower lobe abnormality possibly atelectasis.
Currently no signs of acute infection
Small pericardial effusion noted-on echocardiogram. Unclear etiology.
Per Medicare guidelines patient does not qualify for lung cancer screening.
CT chest 05/13/2024: Reviewed, mild lingular and bilateral lower lobe atelectasis versus scarring. Mild bronchiectasis. No evidence for pneumonia. Small pericardial effusion. Tiny right pleural effusion. No evidence for pulmonary nodules.
Suspect mild lingular pleural-based scarring is postradiation. History of breast cancer.
-
Wean FiO2-Home oxygen assessment prior to discharge. Currently on 2 L, hopefully can be weaned off.
-
Smoking cessation encouraged
Nicotine patch in place
-
Will follow
Information to follow-up has been left in the chart.
-
Anticipate possible discharge tomorrow from the pulmonary perspective.
Hopefully can weaned off oxygen
Subjective Data
-
Date of Service:
Date of Service: May 14, 2024
Chief Complaint: Pulmonary Follow Up (Acute hypoxemic respiratory failure)
Subjective:
Denies any new complaints
Remains on 6 L supplemental oxygen
Denies cough or significant phlegm production.
Review of Systems
Cardiopulmonary: Dyspnea
GI: Abdominal Pain (n) and Nausea (n)
Neuro: Headache (n)
Objective Data
Data Reviewed
Vital Signs / I&O / Oxygen:
Vital Signs
Temp Pulse Resp BP Pulse Ox
97.9 F 71 22 135/65 92
05/14/24 07:54 05/14/24 07:54 05/14/24 07:54 05/14/24 07:54 05/14/24 08:00
Intake and Output
05/13/24 05/14/24 05/15/24
06:59 06:59 06:59
Intake Total 350 / 590 1320 / 1320
Balance 350 / 590 1320 / 1320
SaO2 92
Nasal Cannula flow liters per 5
minute
Physical Exam
General: Comfortable
HEENT: Normocephalic
Cardiovascular: S1-S2
Respiratory: Non-Labored Respirations
GI: Soft and Non Distended
Neurology: Awake, Alert and No Motor Deficits
Skin: Warm
Labs/Micro/Reports
Lab Data
05/11/24 16:36
05/14/24 07:41
Microbiology
05/12/24 07:12 Nose MRSA Screen - Final
No Methicillin Resistant Staphylococcus aureus isolated.
05/11/24 18:40 Nasal Swab Influenza Types A & B (KOKI) - Final
Negative for Influenza A & B, NAAT
Negative results must be combined with clinical observations
and patient history.
Nucleic Acid Amplification test (NAAT)performed on the
[employer] platform.
[2024-05-14 15:09] VITALS: BP 153/65
--- NOTE | 2024-05-14 15:59 | PN.CDI ---
CDI
- -
CDI:
Physician Documentation Request
Admit Date: 05/11/24 19:38
Dear Doctor Do,
Please review the following and provide your response in the progress notes.
Clinical Indicators:
Cardiology, PN, 05/13
# Elevated troponin
#...-acute non-ischemic myocardial injury in setting of acute HF, peak 0.1
#...-no CP, but EKG is abnormal with anterolateral TWI
PN, 05/14
# Troponin elevation likely demand ischemia from CHF
#...-Trop 0.08 > 0.09
#...-Patient denied chest pain
Laboratory Tests
05/11/24 05/11/24 05/12/24
17:31 23:56 06:22
Troponin I 0.083 H* 0.106 H* D 0.091 H*
Based on the above and your clinical assessment, please clarify the etiology of the elevated troponin:
Non-ischemic myocardial injury
Abnormal lab value, clinically insignificant
Other(please specify)
Use of terms such as suspected, likely, concern for, or probable (associated with a specific diagnosis that is being evaluated, monitored, or treated as if it exists) are acceptable and can be coded in the inpatient setting, when documented at the
time of discharge.
Thank you,
Kristin Bolden RN BSN CCDS
CDI Specialist
please contact via tiger text
Please use your independent medical judgment in providing your response.
[2024-05-14] MEDS: CRESTOR 20 MG PO (16:36)
[2024-05-14] MEDS: NICORETTE 2 MG PO (16:37)
[2024-05-14] MEDS: DUONEB INH (20:17)
[2024-05-14] MEDS: PULMICORT INH (20:17)
[2024-05-14] MEDS: HEPARIN SC (20:26)
[2024-05-14] MEDS: DECADRON IV (22:28)
[2024-05-15 03:52] VITALS: BMI 25.8
[2024-05-15 07:00] VITALS: BP 154/83
[2024-05-15] MEDS: OSCAL CAL 500 1500 MG PO (07:30)
[2024-05-15] MEDS: NICODERM TRANSDERMAL 14 MG TRANSDERM (07:30)
[2024-05-15] MEDS: HEPARIN 5000 UNITS SC (07:31)
[2024-05-15] MEDS: LOW STRENGTH ASPIRIN 81 MG PO (07:31)
[2024-05-15] MEDS: DUONEB 3 ML INH ×2 (07:32→14:28)
[2024-05-15] MEDS: PULMICORT 0.5 MG INH (07:32)
--- NOTE | 2024-05-15 08:38 | W.PN.HOSP.TC ---
Today's Communication/Plan
-
Discharge to short-term rehab today
Assessment / Plan
Assessment / Plan
#Acute hypoxic respiratory failure
From new onset CHF vs COPD
Currently requiring 2 L, down 6 L of oxygen, wean as tolerated
Medically stable for discharge to short-term rehab on 2 L at all time
From [facility]
#Acute COPD exacerbation
#Cigarette nicotine dependency
Appreciate pulmonology input, resolving on IV steroids, bronchodilators
Started nicotine patch, patient adamant on not quitting
Medically stable for discharge on steroid taper and bronchodilators
Patient informed not to smoke while wearing her oxygen as this is a fire hazard, she reports understanding
#Acute heart failure with a preserved ejection fraction
Appreciate cardiology input, resolved with ethacrynic acid
Recommend ethacrynic acid as needed
#Acute kidney injury likely from fluid overload
-Creatinine 1.6 at admit, resolved
-Not on nephrotoxic medication
-Bladder scan/straight cath ordered
-Continue to monitor
#Hypernatremia
-Resolved with ethacrynic acid
#Hyperkalemia
Potassium 5.2, low potassium diet, trend
# Hepatic congestion
-AST 47, ALT 52
-Patient denied any abdominal pain
-Continue to monitor
#Acute non-ischemic myocardial injury in setting of acute HF
-Trop 0.08 > 0.09
-Patient denied chest pain
-Continue to trend Trope EKG with impression of normal sinus rhythm with sinus arrhythmia
#Chronic ambulatory dysfunction
Patient is wheelchair-bound by choice
History of PAD/PVD
DVT prophylaxis -subcu Lovenox
DNR
Updated daughter/POA who lives in [place] on phone 05/14
Physical Exam
General: Appears chronically ill, no acute distress
HEENT: Normocephalic, Atraumatic, EOMI, MMM
Respiratory: Diminished breath sounds in all lung alvarez diffusely
Cardiac: Normal S1/S2, Regular Rate and Rhythm
GI: Soft, Nontender, Nondistended, Normal Bowel Sounds
Extremities: No Clubbing, Cyanosis, or Edema
Neuro: Nonfocal/Grossly Intact
Anticipated Discharge: Today
Subjective/Interval History
-
Date of Service: May 15, 2024
Patient denies chest pain, shortness of breath, coughing, or wheezing. No fever, no vomiting.
Objective Data
-
Vital Signs:
Vital Signs
Temp Pulse Resp BP Pulse Ox
97.2 F 68 16 154/83 94
05/15/24 07:00 05/15/24 07:33 05/15/24 07:33 05/15/24 07:00 05/14/24 15:09
I&O
05/14/24 05/15/24 05/16/24
06:59 06:59 06:59
Intake Total 1320 / 1320 1320 / 1320
Balance 1320 / 1320 1320 / 1320
[2024-05-15] MEDS: DECADRON 2 MG IV (09:38)
[2024-05-15 11:51] LABS: Vitamin B12 780 pg/ml (239-931)
--- NOTE | 2024-05-15 12:55 | W.PN.UPDATE ---
Update Note
Progress Note Update
Patient is in need of oxygen at 2 liters/minute via nasal cannula continuously due to pulse oximetry of 86% on room air at rest.
Oxygen will help to improve hypoxemia. Patient is mobile within the home.
DuoNeb therapy has been tried and is ineffective in treating hypoxemia related symptoms. Oxygen is needed to improve symptoms.
--- NOTE | 2024-05-15 14:43 | W.DCSUMMARY ---
Discharge Summary
Discharge Data
Date of Admission: 05/11/24
Date of Discharge: 05/15/24
-
Pending Results: No
Hospital Course
Discharge diagnosis:
Acute hypoxic respiratory failure
Acute on chronic obstructive pulmonary disease exacerbation
Cigarette nicotine dependency
Acute heart failure with a preserved ejection fraction
Cognitive impairment
Acute kidney injury
Hypernatremia
Hyperkalemia
Hepatic congestion
Nonischemic myocardial injury troponin elevation
Chronic ambulatory dysfunction, will chair bound by choice
Peripheral artery disease
Consults: Cardiology, pulmonology
Hospital course:
78-year-old female with a past medical history of cigarette nicotine dependency, chronic ambulatory dysfunction, peripheral artery disease, and cigarette nicotine dependency was admitted for acute hypoxic respiratory failure secondary to COPD
exacerbation and new onset CHF.
Patient was seen in conjunction with cardiology. She was diuresed with ethacrynic acid. She became euvolemic. Cardiology recommends ethacrynic acid as needed for swelling and weight gain.
Patient had hypernatremia and acute kidney injury. Both her hypernatremia and acute kidney injury resolved with diuresis.
Patient was noted to continue to require 6 L of oxygen despite resolution of her acute heart failure. She was seen in conjunction with pulmonology. She likely has COPD. She was treated with IV steroids and bronchodilators. She was successfully
weaned to 2 L of oxygen. She is adamant about not quitting cigarette smoking. She has been counseled to not smoke while wearing her oxygen as this is a fire hazard. She reports understanding.
Patient has cognitive impairment suspicious of developing dementia. Her confusion worsened in the evenings, consistent with ing. She was more oriented and calm during the day.
Patient's multiple medical conditions have been optimized. She is discharged to short-term rehab on a prednisone taper, and bronchodilators. She needs to follow-up with her primary care doctor in 1 week, and pulmonology in the office in 2-3 weeks.
Disposition: Short-term rehab
Discharge planning: Required 39 minutes
Discharge Plan
-
Patient Disposition: Halfway/SNF
Discharge Diagnosis/Procedures: Acute on chronic obstructive pulmonary disease exacerbation, acute heart failure, acute hypoxic respiratory failure, cigarette nicotine dependency, chronic ambulatory dysfunction, acute kidney injury
Condition: Fair
Diet: Regular
Activity: As tolerated
Activity Restrictions/Additional Instructions:
Recommend cigarette cessation.
You need to wear oxygen 2 L at all times.
It is very important that you do not smoke while wearing your oxygen, as this can cause a fire and burn injury.
Take prednisone taper:
40mg daily x4days, 30mg daily x3days,
20mg daily x3days, 10mg daily x3days, then stop.
Follow-up with your primary care doctor in 1 week, and pulmonology in the office in 2-3 weeks.
Referrals:
RUBEN WALLS MD [Family Provider] - in one week
Bassam Madrid MD [Active] - in two to three weeks (with TECHNOLOGY METHODOLOGY CONSULTANT, PFT/6MWT)
Prescriptions:
New
ethacrynic acid 25 mg Tablet
50 mg PO DAILY PRN (Reason: weight gain, edema) Qty: 0 0RF
aspirin 81 mg Tablet,Chewable
81 mg PO DAILY Qty: 0 0RF
nicotine 14 mg/24 hr Patch 24 Hour
14 mg transdermal DAILY Qty: 0 0RF
nicotine (polacrilex) 2 mg Gum
2 mg PO Q2HPRN PRN (Reason: Tobacco craving) Qty: 0 0RF
ipratropium-albuterol 0.5 mg-3 mg(2.5 mg base)/3 mL Solution For Nebulization
3 ml inhalation R TID Qty: 0 0RF
ipratropium-albuterol 0.5 mg-3 mg(2.5 mg base)/3 mL Solution For Nebulization
3 ml inhalation R Q4HPRN PRN (Reason: shortness of breath) Qty: 0 0RF
calcium carbonate 500 mg calcium (1,250 mg) Tablet
1,500 mg PO DAILY Qty: 0 0RF
budesonide 0.5 mg/2 mL Suspension For Nebulization
0.5 mg inhalation R BID Qty: 0 0RF
rosuvastatin 20 mg Tablet
20 mg PO QPM Qty: 0 0RF
prednisone 10 mg tablet
10 mg PO .TAPER Qty: 34 0RF
Rx Instructions:
Take 40mg daily x4days, 30mg daily x3days,
20mg daily x3days, 10mg daily x3days.
Continued
Prolia 60 MG/ML syringe
60 mg SQ [id number]
Discontinued
calcium carbonate [Calcium 600] 600 mg calcium (1,500 mg) Tablet
600 mg PO DAILY
Discharge Orders:
Discharge Patient (As Directed); Ordered 05/15/24
Ordered By: Cecil Oliveros
Discharge Date and Time
Discharge Date/Time: 05/15/24 19:08
Print Language: ALBANIAN
--- NOTE | 2024-05-15 14:56 | CM ---
cashier manager reviewed patient's chart and after long discussions with patient, patient's daughter and physician plan is for short rehab stay and then return to [facility], patient is agreeable to a referral to [facility] referral sent to
[facility] and they have accepted patient, patient will go to [facility] by ambulance.
Plan; Skilled placement at [facility] today
Report [phone]
[2024-05-15 15:22] VITALS: BP 116/57
[2024-05-15 16:30] LABS: Free T4 1.25 ng/dl (0.78-2.19)
[2024-05-15] MEDS: CRESTOR 20 MG PO (17:15)
== END 2024-05-15 19:08 | DRG 291 ==
LOC: 4 WEST ACU 19:38
PROVIDERS: Registered Nurse; ADMITTING PHYSICIAN Hospitalist; ATTENDING PHYSICIAN Family Medicine; CONSULT PHYSICIAN Internal Medicine; CONSULT PHYSICIAN Internal Medicine Critical Care Medicine; EMERGENCY PHYSICIAN Emergency Medicine; FAMILY PHYSICIAN Internal Medicine
DX: I50.31 Acute diastolic (congestive) heart failure (principal); J96.01 Acute respiratory failure with hypoxia; N17.9 Acute kidney failure, unspecified; I5A Non-ischemic myocardial injury (non-traumatic); E87.0 Hyperosmolality and hypernatremia; J44.1 Chronic obstructive pulmonary disease with (acute) exacerbation; I31.39 Other pericardial effusion (noninflammatory); Z66 Do not resuscitate; E78.00 Pure hypercholesterolemia, unspecified; I73.9 Peripheral vascular disease, unspecified; K76.1 Chronic passive congestion of liver; L40.9 Psoriasis, unspecified; M81.0 Age-related osteoporosis without current pathological fracture; E87.5 Hyperkalemia; F17.210 Nicotine dependence, cigarettes, uncomplicated; Z88.2 Allergy status to sulfonamides; Z88.5 Allergy status to narcotic agent; Z88.6 Allergy status to analgesic agent; Z95.820 Peripheral vascular angioplasty status with implants and grafts; Z85.3 Personal history of malignant neoplasm of breast; Z11.52 Encounter for screening for COVID-19
CPT/HCPCS: 71045; 71250; 80048; 80053; 80061; 82248; 82607; 83735; 83880; 84439; 84443; 84484; 85025; 87070; 87502; 87811; 93005; 93306; 94640; 96374; 97162; 97530; 99291; 99406

== ENCOUNTER → 2024-07-10 10:25 | Outpatient (REF) | payer MEDICARE, BC, SELFPAY | LOC: RAD 10:25 | PROVIDERS: ATTENDING PHYSICIAN Internal Medicine Rheumatology | DX: M81.0 Age-related osteoporosis without current pathological fracture (principal) | CPT/HCPCS: 77080 ==

== ENCOUNTER → 2024-11-14 10:25 | Outpatient (REF) | payer MEDICARE, BC, SELFPAY | LOC: HWWDC 10:25 | PROVIDERS: FAMILY PHYSICIAN Internal Medicine | DX: Z12.31 Encounter for screening mammogram for malignant neoplasm of breast (principal) | CPT/HCPCS: 77063; 77067 ==

== ENCOUNTER 2025-03-19 14:12 | Inpatient (IN) | payer MEDICARE, BC, SELFPAY ==
[2025-03-19] VITALS (10 sets, daily range): BP systolic 116–198; BP diastolic 50–139; BMI 29.2; BMI 28.2
--- NOTE | 2025-03-19 10:46 | ED.GENMED ---
History of Present Illness
<Sariah Lemus PANEL COVERER - Last Filed: 03/19/25 17:05>
General
Chief Complaint: Breathing Problem
Source: patient, ambulance crew and detention records
Exam Limitations: none
Time Seen by Provider: 03/19/25 10:41
Nursing documentation reviewed up to this point in time: agreed with
History of Present Illness
History of Present Illness:
79 yo female from [facility] w h/o COPD, CHF, HLD, PVD w critical LLE limb ischemia with stents 2019, presents via EMS for low pulse ox. Pt states she is feeling no more short of breath than usual, she is still smoking up to a pack a day. Denies
CP. Denies abd pain, n/v/d/c. No UTI symptoms.
On arrival pulse ox in 50's on RA up to 90% on 4L N[place]C.
Past History
<Sariah Lemus, PANEL COVERER - Last Filed: 03/19/25 17:05>
Past History
ED Past Medical History: CAD, COPD, Hypercholesterolemia and Other (PVD)
ED Past Surgical History:
Social History
Tobacco: Smoker
Alcohol: None
Drug: None
Living: detention
Review of Systems
<Sariah Lemus PANEL COVERER - Last Filed: 03/19/25 17:05>
Review of Systems
Allergies reviewed?: Yes
All Other Systems: ROS reviewed and negative except as documented in HPI and ROS
Constitutional: Denies fever
Respiratory: Denies cough or trouble breathing
Cardiac: Denies chest pain
ABD/GI: Denies abdominal pain, nausea, vomiting, diarrhea or constipated
: Denies dysuria
Musculoskeletal: Denies edema
Neurological: Denies headache
Phy Exam
<Sariah Lemus, PANEL COVERER - Last Filed: 03/19/25 17:05>
Physical Exam
Physical Exam:
GENERAL: No acute distress. A&Ox3.
CONSTITUTIONAL: Afebrile.
EYES: clear, conjunctivae normal
ENMT: moist mucus membranes, Pharynx nl
RESPIRATORY: Regular respirations, nonlabored, lungs w diminished BS, low pitched rub on left. Hypoxic 50-60% RA, improves to 90% on 4L N.C.
CARDIOVASCULAR: Regular rate and rhythm, no murmurs, no rubs.
GI: Soft, nontender, normal BS
MUSCULOSKELETAL: Moves with ease. Well perfused.
SKIN: Warm, dry, pink
PSYCH: Normal mood and affect. Well kept, interactive and appropriate
NEUROLOGIC: Awake, alert and oriented. No focal neurological deficits
Scores
<Sariah Lemus, PANEL COVERER - Last Filed: 03/19/25 17:05>
Heart Failure Risk
Heart Failure Risk Score: Yes
History of Stroke or TIA: No
History of intubation for respiratory distress: No
Heart rate on ED arrival >/= 110: No
SaO2 <90% on arrival on room air: Yes
HR >/=110 during 3min walk test (or too ill to perform test): Yes
ECG has acute ischemic changes: No
Urea >/=12mmol/L (BUN 33.6mg/dL): No
Serum CO2>/=35mmol/L: No
Troponin I or T elevated to UT Level (0.4mg/dL): No
NT-proBNP >/=5,000ng/L (5,000pg/ml): Yes
HF Risk Score: 4
Admission Status: HIGH RISK 26.1% Consider SNF treatment or admission to hospital
Sepsis
<Sariah Lemus, PANEL COVERER - Last Filed: 03/19/25 17:05>
Sepsis Screening
Sepsis Assessment: Sepsis Ruled Out
Sepsis Screen
Sepsis Screen: Sepsis Ruled Out
Date: 03/19/25
Time: 17:05
Course
<Sariah Lemus NP - Last Filed: 03/19/25 17:05>
Orders/Labs/Results
Orders:
Orders
03/19/25 Breakfast
Cholesterol Lowering
At Your Request: Limited Participation
Does patient need a safe tray?: No
Fluid Restriction: 1200 mL/day (40 oz)
Cholesterol Lowering: Sodium, 2 Gram
03/19/25 10:54
CR Chest - 2 Views Urgent
Comment:
Reason For Exam: Hypoxia, COPD
03/19/25 11:00
Complete Blood Count/With Diff Urgent
03/19/25 11:06
Electrocardiogram (*1) Urgent
Reason for Study: Shortness of Breath
EKG- Treatment ONCE
03/19/25 12:18
NT-proBNP Urgent
03/19/25 13:28
Dexamethasone Sod Phosphate [Decadron] 10 mg IV NOW STA
Ipratropium/Albuterol Sulfate [Duoneb] 3 ml INH R NOW STA
03/19/25 13:32
Comprehensive Metabolic Panel Urgent
03/19/25 13:51
Admit/Transfer Patient As Directed
Co-Sign Provider:
Level of Care: Inpatient admission
Assign to:: Telemetry
Physician / Group: ana
Diagnosis: COPD exacerbation
Reason for Telemetry: Other
Other Reason for Telemetry: acute hypoxia
Date to Stop Telemetry: 03/21/25
Time to Stop Telemetry: 11:00
Reason for Hospitalization: COPD
Expected length of stay greater than two midnights?: Yes
ELOS- Estimated Length of Stay in days: 3
I certify the patient meets the requirements for IP care: Yes
03/19/25 13:52
PRN Pain Medication Management As Directed
May give lesser potent ordered pain med per pt: Yes
preference::
Protocol:: Medication orders for pain may be administered in a
manner that supports deferring to patient preference
when the pt is:
- Requesting an ordered lesser potent pain medication.
Least to most potent pain medications are defined
as: acetaminophen < NSAID < tramadol < opioids
(morphine, oxycodone, hydromorphone).
- Requesting a lesser dose of the same medication IF
ORDERED.
- Requesting a less intrusive route of administration
if both routes are prescribed by the provider (PO <
IV).
03/19/25 13:53
Code Status As Directed
Resuscitation Status: Do not resuscitate
Reached after discussion with pt or family/Healthcare POA: Yes
DNR Bracelet Application ONCE
03/19/25 14:01
Furosemide [Lasix] 40 mg IV NOW STA
03/19/25 15:20
COVID-19 Antigen Stat
Source: Nasal Swab
Influenza A+B Rapid Molecular Stat
EBONIE Source: Nasal Swab
Specimen Description:
03/19/25 16:33
Acetaminophen [Tylenol] 650 mg PO Q4HPRN PRN
Dexamethasone Sod Phosphate [Decadron] 4 mg IV Q12H
HydrALAZINE [Apresoline] 10 mg IV Q4HPRN PRN
Ipratropium/Albuterol Sulfate [Duoneb] 3 ml INH R Q4HPRN PRN
Ipratropium/Albuterol Sulfate [Duoneb] 3 ml INH R QID
03/19/25 16:33
Echo 2D MMode Color/Doppler Routine
Reason for Study: heart failure
HF DIETARY CONSULT Routine
HF EDUCATOR CONSULT Routine
Comment:
Activity As Directed
Activity Level: As Tolerated
Intake/ Output As Directed
Frequency: Per unit guidelines
Patient Education As Directed
Type: CHF folder
Comment: give on admission. Document in Interdisciplinary Education record
Sleep Apnea Assessment by RN As Directed
Comment:
Physician Instructions:
Vital Signs As Directed
Frequency: Per unit guidelines
Weight As Directed
Frequency: Daily
Copd Education [RESP] Routine
O2 Therapy [RESP] Routine
Titrate/Wean O2 to maintain O2 sat greater than (%): 87
Special Instructions: adjust, if necessary, to avoid hyperoxia in CO2 retainers.
Use High Flow O2 if necessary
Pulse Ox/cont/shift [RESP] Routine
Quantity: 1
Special Instructions: Daily pulse oximetry at rest. If greater than 92% at rest also obtain pulse oximetry
while ambulating as tolerated.
Ot Eval And Treat Routine
Pt Eval And Treat Routine
Activity Level: As Tolerated
DX Deep Vein Thrombosis Video Routine
03/19/25 18:00
Enoxaparin Sodium [Lovenox] 40 mg SC QPM
Rosuvastatin Calcium [Crestor] 20 mg PO QPM
03/20/25 06:00
Basic Metabolic Panel IN AM
Cardiovascular Evaluation IN AM
Complete Blood Count/No Diff IN AM
Uszom-Fziu-Wlatbnh IN AM
Magnesium IN AM
TSH Reflex To Free T4 IN AM
03/20/25 08:00
Aspirin Chewable [Low Strength Aspirin] 81 mg PO DAILY
03/21/25 06:00
Basic Metabolic Panel IN AM
03/21/25 11:00
DC Protocol for Telemetry ONCE
03/22/25 06:00
Basic Metabolic Panel IN AM
Abnormal Lab Results
03/19/25 03/19/25
11:00 13:32
MCHC 31.2 L g/dL
(33.0-37.0)
RDW 14.6 H %
(11.5-14.5)
Absolute Monos (auto) 1.1 H 10^3/uL
(0.1-0.6)
Lymphocytes % 19.4 L %
(20.5-51.1)
Monocytes % 11.8 H %
(1.7-9.3)
Glucose 139 H mg/dl
(70-99)
AST 40 H U/L
(14-36)
ALT 52 H U/L
(0-35)
03/19/25 11:00
03/19/25 13:32
Vital Signs
Initial and Last Documented VS:
Initial Vital Signs
Pulse Resp BP
97 29 179/69
03/19/25 10:32 03/19/25 10:32 03/19/25 10:32
Last Documented Vital Signs
Temp Pulse Resp BP Pulse Ox
97.8 F 84 23 158/75 98
03/19/25 10:33 03/19/25 14:15 03/19/25 14:15 03/19/25 15:00 03/19/25 15:01
<Barry Moreno MD - Last Filed: 03/19/25 15:36>
Orders/Labs/Results
Orders:
Orders
03/19/25 Breakfast
Cholesterol Lowering
At Your Request: Limited Participation
Does patient need a safe tray?: No
Fluid Restriction: 1200 mL/day (40 oz)
Cholesterol Lowering: Sodium, 2 Gram
03/19/25 10:54
CR Chest - 2 Views Urgent
Comment:
Reason For Exam: Hypoxia, COPD
03/19/25 11:00
Complete Blood Count/With Diff Urgent
03/19/25 11:06
Electrocardiogram (*1) Urgent
Reason for Study: Shortness of Breath
EKG- Treatment ONCE
03/19/25 12:18
NT-proBNP Urgent
03/19/25 13:28
Dexamethasone Sod Phosphate [Decadron] 10 mg IV NOW STA
Ipratropium/Albuterol Sulfate [Duoneb] 3 ml INH R NOW STA
03/19/25 13:32
Comprehensive Metabolic Panel Urgent
03/19/25 13:51
Admit/Transfer Patient As Directed
Co-Sign Provider:
Level of Care: Inpatient admission
Assign to:: Telemetry
Physician / Group: ana
Diagnosis: COPD exacerbation
Reason for Telemetry: Other
Other Reason for Telemetry: acute hypoxia
Date to Stop Telemetry: 03/21/25
Time to Stop Telemetry: 11:00
Reason for Hospitalization: COPD
Expected length of stay greater than two midnights?: Yes
ELOS- Estimated Length of Stay in days: 3
I certify the patient meets the requirements for IP care: Yes
03/19/25 13:52
PRN Pain Medication Management As Directed
May give lesser potent ordered pain med per pt: Yes
preference::
Protocol:: Medication orders for pain may be administered in a
manner that supports deferring to patient preference
when the pt is:
- Requesting an ordered lesser potent pain medication.
Least to most potent pain medications are defined
as: acetaminophen < NSAID < tramadol < opioids
(morphine, oxycodone, hydromorphone).
- Requesting a lesser dose of the same medication IF
ORDERED.
- Requesting a less intrusive route of administration
if both routes are prescribed by the provider (PO <
IV).
03/19/25 13:53
Code Status As Directed
Resuscitation Status: Do not resuscitate
Reached after discussion with pt or family/Healthcare POA: Yes
DNR Bracelet Application ONCE
03/19/25 14:01
Furosemide [Lasix] 40 mg IV NOW STA
03/19/25 15:20
COVID-19 Antigen Stat
Source: Nasal Swab
Influenza A+B Rapid Molecular Stat
EBONIE Source: Nasal Swab
Specimen Description:
03/19/25 16:33
Acetaminophen [Tylenol] 650 mg PO Q4HPRN PRN
Dexamethasone Sod Phosphate [Decadron] 4 mg IV Q12H
HydrALAZINE [Apresoline] 10 mg IV Q4HPRN PRN
Ipratropium/Albuterol Sulfate [Duoneb] 3 ml INH R Q4HPRN PRN
Ipratropium/Albuterol Sulfate [Duoneb] 3 ml INH R QID
03/19/25 16:33
Echo 2D MMode Color/Doppler Routine
Reason for Study: heart failure
HF DIETARY CONSULT Routine
HF EDUCATOR CONSULT Routine
Comment:
Activity As Directed
Activity Level: As Tolerated
Intake/ Output As Directed
Frequency: Per unit guidelines
Patient Education As Directed
Type: CHF folder
Comment: give on admission. Document in Interdisciplinary Education record
Sleep Apnea Assessment by RN As Directed
Comment:
Physician Instructions:
Vital Signs As Directed
Frequency: Per unit guidelines
Weight As Directed
Frequency: Daily
Copd Education [RESP] Routine
O2 Therapy [RESP] Routine
Titrate/Wean O2 to maintain O2 sat greater than (%): 87
Special Instructions: adjust, if necessary, to avoid hyperoxia in CO2 retainers.
Use High Flow O2 if necessary
Pulse Ox/cont/shift [RESP] Routine
Quantity: 1
Special Instructions: Daily pulse oximetry at rest. If greater than 92% at rest also obtain pulse oximetry
while ambulating as tolerated.
Ot Eval And Treat Routine
Pt Eval And Treat Routine
Activity Level: As Tolerated
DX Deep Vein Thrombosis Video Routine
03/19/25 18:00
Enoxaparin Sodium [Lovenox] 40 mg SC QPM
Rosuvastatin Calcium [Crestor] 20 mg PO QPM
03/20/25 06:00
Basic Metabolic Panel IN AM
Cardiovascular Evaluation IN AM
Complete Blood Count/No Diff IN AM
Smnzh-Ujjr-Ciihnzc IN AM
Magnesium IN AM
TSH Reflex To Free T4 IN AM
03/20/25 08:00
Aspirin Chewable [Low Strength Aspirin] 81 mg PO DAILY
03/21/25 06:00
Basic Metabolic Panel IN AM
03/21/25 11:00
DC Protocol for Telemetry ONCE
03/22/25 06:00
Basic Metabolic Panel IN AM
Abnormal Lab Results
03/19/25 03/19/25
11:00 13:32
MCHC 31.2 L g/dL
(33.0-37.0)
RDW 14.6 H %
(11.5-14.5)
Absolute Monos (auto) 1.1 H 10^3/uL
(0.1-0.6)
Lymphocytes % 19.4 L %
(20.5-51.1)
Monocytes % 11.8 H %
(1.7-9.3)
Glucose 139 H mg/dl
(70-99)
AST 40 H U/L
(14-36)
ALT 52 H U/L
(0-35)
03/19/25 11:00
03/19/25 13:32
Vital Signs
Initial and Last Documented VS:
Initial Vital Signs
Pulse Resp BP
97 29 179/69
03/19/25 10:32 03/19/25 10:32 03/19/25 10:32
Last Documented Vital Signs
Temp Pulse Resp BP Pulse Ox
97.8 F 84 23 158/75 98
03/19/25 10:33 03/19/25 14:15 03/19/25 14:15 03/19/25 15:00 03/19/25 15:01
<Sariah Lemus PANEL COVERER - Last Filed: 03/19/25 17:05>
MDM/Problems Addressed
Differential Diagnosis Includes:
exacerbation COPD, PNA, CHF
MDM/Problems Addressed:
79 [place], CHF, HLD, PVD w critical LLE limb ischemia with stents 2019, presents via EMS for low pulse ox. Pt states she is feeling no more short of breath than usual, she is still smoking up to a pack a day. Denies
CP. Denies abd pain, n/v/d/c. No UTI symptoms.
On arrival pulse ox in 50's on RA up to 90% on 4L N[place]
States she used oxygen at the NH 'for a while, and then I didn't.'
Pulse ox now 95% 4L n.c.
Afebrile, NAD, speaking in full sentences
EKG: sinus with sinus arrhythmia
CBC normal
CMP: hemolyzed, IV team in and 2nd one pending
BNP:7990
CXR: Radiology report read: IMPRESSION:
Mild bibasilar airspace opacities which are overall similar appearance to prior which would favor atelectasis/scarring, however pneumonia cannot be excluded.
Cardiomegaly, stable from prior.
1:30 p.m.
CMP hemolyzed again 3rd on pending
Plan: Admit: COPD exacerbation, CHF, acute respiratory failure
Hospitalis notified of admission.
<Sariah Lemus PANEL COVERER - Last Filed: 03/19/25 17:05>
*Pulse Oximetry
SaO2: 88
Nasal Cannula flow liters per minute: 4
Oxygen Mode of Delivery: Room air
Patient hypoxic: yes
*Critical Care Note
Total Time (30-74mins, 75-104mins- exclusive of procedures): Not Applicable
ED Attending Note
<Sariah Lemus NP - Last Filed: 03/19/25 17:05>
-
Portions of this chart may have been created with voice recognition software.� Occasional wrong word or��sound alike� substitutions may have occurred due to the inherent limitations of voice recognition software.
<Barry Moreno MD - Last Filed: 03/19/25 15:36>
ED Attending Note
Patient seen and examined by attending physician: Yes
ED Attending Note:
I have seen and evaluated the patient with a [id number] encounter. I have spoken to the advance practicer provider and involved in the medical history, the physical exam, medical decision making.
Evaluation and management service: agree unless noted differently below.
Results interpretation: agree unless noted differently below.
Focused HPI: 79-year-old female with history as noted presents for evaluation of shortness of breath. Patient reports that this is a chronic issue but seems to be worse over the past few days. She does have associated cough.
Physical exam: Awake and alert, nontoxic. Mild tachypnea, hypoxic requiring 4 L nasal cannula. Diminished breath sounds bilaterally. Edema in the legs.
Medical Decision Makin-year-old female presents for increased shortness of breath recently. Found to be tachypneic and hypoxic. Vitals and exam as above. CBC and CMP essentially unremarkable. proBNP elevated. Chest x-ray shows cardiomegaly
but no pneumonia or ismael edema. Suspect COPD exacerbation possibly some element of CHF as well. Treat with nebs, steroids, Lasix x 1. Admit for continued care.
Discharge Plan
Departure
Patient Disposition: Admit
Date of Disposition: 03/19/25
Time of Disposition: 13:27
Admit to: Telemetry
Presentation/result/management discussed w/ accepting MD/DO: Hospitalist
Condition: Serious
Discharge Problem:
Acute respiratory failure with hypoxia, Acute on chronic COPD, CHF (congestive heart failure)
Interventions
Interventions:
*Risk Screen - Suicide Last Done: 03/19/25 10:33
*General Assessment Last Done: 03/19/25 10:33
*Neglect/Abuse Screening Last Done: 03/19/25 10:33
[facility] Fall Risk Assessment Tool Last Done: 03/19/25 10:27
*Nursing Disposition Last Done: 03/19/25 15:12
ED- Cardiac Assessment Last Done: 03/19/25 10:33
ED- Pulmonary Assessment Last Done: 03/19/25 10:33
Discharge Date and Time
Discharge Date/Time: 03/19/25 16:36
[2025-03-19 11:23] LABS: Hematocrit 46.8 % (37.0-47.0); Hemoglobin 14.6 g/dL (12.0-16.0); Mean Corp Hgb Conc. 31.2 g/dL (33.0-37.0); Mean Corpuscular Volume 95.1 fL (81.0-99.0); Nucleated Red Blood Cells % 0 %; Platelet Count 342 10^3/uL (130-400); Red Cell Dist. Width 14.6 % (11.5-14.5)
--- NOTE | 2025-03-19 13:34 | HPS.HSE ---
Addendum entered and electronically signed by Ginny León MD 03/19/25 16:37:
This is an addendum to H&P written by Emily Kim on 03/19/2025. �Patient seen and examined dependently with [facility] [employer].
79-year-old female past medical history of COPD, HFpEF, cognitive impairment, chronic ambulatory dysfunction wheelchair-bound, peripheral arterial disease with history of stents of the left lower extremity, presenting with low pulse ox.
�Intermittent shortness of breath.� No smoking. �No chest pain. Lower extremity edema stable.�
Hypoxemic to 50% requiring 5 L of oxygen. �Blood pressure initially 179 came down to 120s but back up to 189. Lungs sound clear.�
CBC unremarkable.� Cardiac BNP 8000. Mild trasaminitis on labs.�
Chest x-ray shows mild by basilar apex opacities similar to previously, pneumonia cannot be excluded.
Patient with acute CHF exacerbation/COPD exacerbation. Suspect more likely CHF exacerbation. Patient also hypertensive.� DuoNebs, dexamethasone.� Etharynic acid 50 daily secondary to Sulfa allergy. Check COVID and influenza. Check echo. PRN
hydralazine.�
Original Note:
Family Physician
-
Family Physician: RUBEN WALLS MD
Chief Complaint
-
sob
History of Present Illness
79 yo female from [place] w h/o COPD, CHF, HLD, PVD w critical LLE limb ischemia with stents 2019, presents via EMS for low pulse ox. Pt states she is feeling no more short of breath than usual, denied chest pain. Patient denied any lower
extremities edema, denied any weight gain. Patient denied headache, dizzy or syncope. Patient denied any fever, chills, cough, congestion. Patient denied any abdominal pain, nausea, vomiting or diarrhea. Patient denied dysuria, hematuria. she is
still smoking up to a pack a day.
Patient was noted hypoxic on arrival requiring 5 L of oxygen. Patient received nebulizer treatment, steroids in ER. Admitting for further management
Medical History
Past Medical History
Past Medical History: Reports Other
Additional Past Medical History:
Atherosclerosis of carotid arteries, PAD, PVD, breast cancer, psoriasis, osteoporosis
Past Surgical History: Reports Other
Additional Past Surgical History:
Plates in leg, left breast lumpectomy, , tonsillectomy, left lower extremity stent
Social History
Tobacco: Smoker (1 pack daily)
Alcohol: None
Drug: None
Personal: Single
Living: Assisted Living
Family History
Family History: Not pertinent
Allergies / Home Medications
Allergies reflects when Allergies were last updated in [facility].
Home Medications with original date entered in [facility]
Allergy/Medication List:
Allergies
Allergy/AdvReac Type Severity Reaction Status Date / Time
acetaminophen (From Percocet) Allergy constipatio Verified 03/19/25 10:32
n
aspirin (From Percodan) Allergy constipatio Verified 03/19/25 10:32
n
oxycodone HCl (From Percocet) Allergy constipatio Verified 03/19/25 10:32
n
oxycodone terephthalate Allergy constipatio Verified 03/19/25 10:32
(From Percodan) n
Sulfa (Sulfonamide Allergy stopped Verified 03/19/25 10:32
Antibiotics) breathing
Home Medications
aspirin 81 mg chewable tablet 81 mg PO DAILY #0 tabs 05/15/24
calcium carbonate 1,500 mg (3 x 500 mg calcium (1,250 mg)) PO DAILY #0 tabs 05/15/24
rosuvastatin 20 mg tablet 20 mg PO QPM #0 tabs 05/15/24
acetaminophen 325 mg tablet (Tylenol) 650 mg PO Q6HPRN PRN MILD PAIN 03/19/25
magnesium hydroxide 400 mg/5 mL oral suspension (Milk of Magnesia) 2,400 mg PO DAILYPRN PRN CONSTIPATION 03/19/25
Review of Systems
-
Constitutional: Reports No Symptoms
EENT: Reports No Symptoms
Respiratory: Reports Trouble Breathing
Cardiac: Reports No Symptoms
Abdomen/GI: Reports No Symptoms
: Reports No Symptoms
Musculoskeletal: Reports No Symptoms
Skin: Reports No Symptoms
Neurological: Reports No Symptoms
Endocrine: Reports No Symptoms
Hematologic/Lymphatic: Reports No Symptoms
Psych: Reports No Symptoms
Physical Exam
Vital Signs
Vital Signs
Temp Pulse Resp BP Pulse Ox
97.8 F 74 24 127/80 88
03/19/25 10:33 03/19/25 11:15 03/19/25 11:15 03/19/25 11:00 03/19/25 10:49
Physical Exam
General: Well Developed, Well Nourished and No Apparent Distress
HEENT: NormoCephalic, Moist mucous membranes and Atraumatic
Respiratory: Decreased Breath Sounds
Cardiac: S1/S2 and Regular Rhythm; No Murmur or Rub
GI: Soft, Non Tender, Non Distended and Normal Bowel Sounds; No Organomegaly
Rectal: Deferred by Provider
Musculoskeletal: No Clubbing, No Cyanosis and Other (Bilateral lower extremities edema)
Skin: Dry and Rash
Neuro: AO x 3 and Nonfocal/grossly intact
Psych: Calm
Laboratory Results
-
03/19/25 11:00
Laboratory Results
Total Bilirubin Cancelled 03/19/25 12:18
AST Cancelled 03/19/25 12:18
ALT Cancelled 03/19/25 12:18
Alkaline Phosphatase Cancelled 03/19/25 12:18
Data Reviewed
-
Diagnostic Radiology: Report Reviewed by me
Lab Data: Labs Reviewed by me
Impression/Plan
-
# Acute hypoxic respiratory failure secondary to COPD exacerbation
- Chest x-ray with impression of Mild bibasilar airspace opacities which are overall similar appearance to prior which would favor atelectasis/scarring, however pneumonia cannot be excluded.Cardiomegaly, stable from prior.
- Steroids continue
- Nebs for short of breath and wheezing
- Continue supplemental oxygen to keep sat greater than 87, wean as tolerated
-obtain COVID and Flu
# Concern for CHF exacerbation
- Strict SU, daily weight, fluid restriction
- ethacrynic acid once in ER
Obtain echocardiogram
# Cigarette nicotine dependency
-Denied nicotine patch
#Chronic ambulatory dysfunction
-Patient is wheelchair-bound by choice
-PT/OT consulted
#History of PAD/PVD
- Aspirin continued
- Statin continued
DVT prophylaxis -subcu Lovenox
DNR
[2025-03-19 13:55] LABS: ALT (SGPT) 52 U/L (0-35); AST (SGOT) 40 U/L (14-36); Albumin 4.4 g/dl (3.5-5.0); Alkaline Phosphatase 85 U/L (38-126); Blood Urea Nitrogen 17 mg/dl (7-17); Calcium 9.4 mg/dl (8.4-10.2); Carbon Dioxide 28 mmol/L (22-30); Chloride 105 mmol/L (98-107); Estimated Creatinine Clearance 50 ml/min; Glucose 139 mg/dl (70-99); Potassium 3.8 mmol/L (3.5-5.1); Sodium 139 mmol/L (135-145); Total Protein 7.0 g/dl (6.3-8.2); eGFR > 60.00
[2025-03-19] MEDS: DUONEB 3 ML INH ×3 (14:24→19:28)
[2025-03-19] MEDS: DECADRON 10 MG IV (14:24)
[2025-03-19] MEDS: EDECRIN 50 MG PO (14:49)
[2025-03-19 15:42] LABS: COVID-19 Antigen Negative (Negative)
[2025-03-19] MEDS: LOVENOX 40 MG SC (17:31)
[2025-03-19] MEDS: CRESTOR 20 MG PO (17:33)
--- NOTE | 2025-03-19 17:47 | PTCARENOTE ---
Arrived to unit and stood and pivoted x2 assistance to bed. AAOx2. Patient agitated with admission questioning. Bed alarm intact. Bilateral Dorsalis pedis pulses absent with dopper. PAD with stents noted in hx. Oriented to room, call blake within
reach.
[2025-03-19] MEDS: DECADRON 4 MG IV (23:53)
[2025-03-20] VITALS (7 sets, daily range): BP systolic 125–148; BP diastolic 59–75; PULSE 68–89; BMI 27.7
[2025-03-20] MEDS: DUONEB 3 ML INH ×4 (07:55→19:12)
[2025-03-20 08:14] LABS: Hematocrit 39.7 % (37.0-47.0); Hemoglobin 12.6 g/dL (12.0-16.0); Mean Corp Hgb Conc. 31.7 g/dL (33.0-37.0); Mean Corpuscular Volume 95.4 fL (81.0-99.0); Platelet Count 328 10^3/uL (130-400); Red Cell Dist. Width 14.2 % (11.5-14.5)
[2025-03-20 08:27] LABS: ALT (SGPT) 14 U/L (0-35); AST (SGOT) 19 U/L (14-36); Albumin 3.6 g/dl (3.5-5.0); Alkaline Phosphatase 50 U/L (38-126); Blood Urea Nitrogen 46 mg/dl (7-17); Calcium 8.6 mg/dl (8.4-10.2); Chloride 98 mmol/L (98-107); Estimated Creatinine Clearance 49 ml/min; Glucose 121 mg/dl (70-99); HDL Cholesterol 55 mg/dl; LDL Cholesterol, Calculated 50 mg/dl; Magnesium 1.8 mg/dl (1.6-2.3); Potassium 4.3 mmol/L (3.5-5.1); Sodium 138 mmol/L (135-145); Total Protein 5.9 g/dl (6.3-8.2); Very Low Density Lipoprotein 13 mg/dl (0-30); eGFR > 60.00
[2025-03-20] MEDS: LOW STRENGTH ASPIRIN 81 MG PO (08:28)
[2025-03-20 08:49] LABS: Carbon Dioxide 36 mmol/L (22-30)
[2025-03-20] MEDS: DECADRON 4 MG IV ×2 (12:03→23:36)
--- NOTE | 2025-03-20 12:33 | W.PN.HOSP.TC ---
Today's Communication/Plan
-
Monitor vital signs see plan
Give another dose of ethacrynic acid today
Continue with nebs, steroids
Echo
Assessment / Plan
Assessment / Plan
General: Well Developed, Well Nourished and No Apparent Distress
HEENT: NormoCephalic, Moist mucous membranes and Atraumatic
Respiratory: Decreased Breath Sounds
Cardiac: S1/S2 and Regular Rhythm; No Murmur or Rub
GI: Soft, Non Tender, Non Distended and Normal Bowel Sounds
Musculoskeletal: +edema (Bilateral lower extremities edema)
Neuro: AO x 3 and Nonfocal/grossly intact
Psych: Calm
Acute hypoxic respiratory failure likely multifactorial secondary to COPD exacerbation and possible acute on chronic CHF with preserved EF
- Chest x-ray with impression of Mild bibasilar airspace opacities which are overall similar appearance to prior which would favor atelectasis/scarring, however pneumonia cannot be excluded.Cardiomegaly, stable from prior.
Continue Decadron
Standing and as needed DuoNebs
- Continue supplemental oxygen to keep sat greater than 87, wean as tolerated
-obtain COVID and Flu
check echo. Has seen by [facility] cardiology in past
elevated probnp
Used to be on antibiotic acid as needed however now it is not there on med rec
# Cigarette nicotine dependency
-Denied nicotine patch
#Chronic ambulatory dysfunction
-Patient is wheelchair-bound by choice
-PT/OT consulted
#History of PAD/PVD
- Aspirin continued
- Statin continued
DVT prophylaxis -subcu Lovenox
DNR
I spent a total of 52 minutes with the patient or on the floor. More than 50% of this time involved counseling and coordination of care.
Anticipated Discharge: 24 - 48 hours
Subjective/Interval History
-
Date of Service: March 20, 2025
denies pain
Objective Data
-
Labs:
Laboratory Results
03/20/25
07:16
WBC 5.7
Hgb 12.6
Hct 39.7
Plt Count 328
Sodium 138
Potassium 4.3
Chloride 98
Carbon Dioxide 36 H
BUN 46 H
Creatinine 0.9
Glucose 121 H
Calcium 8.6
Total Bilirubin 0.4
AST 19
ALT 14
Alkaline Phosphatase 50
Vital Signs:
Vital Signs
Temp Pulse Resp BP Pulse Ox
98.3 F 82 18 125/60 94
03/20/25 11:09 03/20/25 11:09 03/20/25 11:09 03/20/25 11:09 03/20/25 11:09
I&O
03/19/25 03/20/25 03/21/25
06:59 06:59 06:59
Intake Total 180 / 180
Balance 180 / 180
[2025-03-20] MEDS: EDECRIN 50 MG PO (12:56)
--- NOTE | 2025-03-20 15:14 | PTCARENOTE ---
Patient removing tele monitor frequently. Continuing to educate patient on need for monitor.
[2025-03-20] MEDS: LOVENOX 40 MG SC (16:33)
[2025-03-20] MEDS: CRESTOR 20 MG PO (16:33)
--- NOTE | 2025-03-20 18:14 | PTCARENOTE ---
Patient found with multiple packs of cigarettes from her purse. Security called and cigarettes were taken to be held. Valuables receipt placed in chart.
[2025-03-21 03:50] VITALS: BP 136/61
[2025-03-21 06:00] VITALS: BMI 27.3
[2025-03-21 07:00] VITALS: BP 144/60
[2025-03-21] MEDS: DUONEB 3 ML INH ×4 (07:53→20:12)
[2025-03-21] MEDS: LOW STRENGTH ASPIRIN 81 MG PO (08:22)
[2025-03-21 09:28] LABS: Hematocrit 43.0 % (37.0-47.0); Hemoglobin 13.8 g/dL (12.0-16.0); Mean Corp Hgb Conc. 32.1 g/dL (33.0-37.0); Mean Corpuscular Volume 93.1 fL (81.0-99.0); Nucleated Red Blood Cells % 0 %; Platelet Count 330 10^3/uL (130-400); Red Cell Dist. Width 14.5 % (11.5-14.5)
[2025-03-21 09:56] LABS: Blood Urea Nitrogen 50 mg/dl (7-17); Calcium 8.5 mg/dl (8.4-10.2); Chloride 99 mmol/L (98-107); Estimated Creatinine Clearance 44 ml/min; Glucose 102 mg/dl (70-99); Potassium 5.1 mmol/L (3.5-5.1); Sodium 139 mmol/L (135-145); eGFR 56.95
[2025-03-21] MEDS: DECADRON 4 MG IV (10:58)
[2025-03-21 11:00] VITALS: BP 142/69
[2025-03-21 11:02] LABS: Carbon Dioxide 34 mmol/L (22-30)
--- NOTE | 2025-03-21 11:48 | CM ---
Met with pt bedside. Completed IA with assistance from nursing at [facility]. IMM given and placed on chart. LIves in an apartment alone. There are no steps at the entrance of the building. No insecurities identified. Pt is NOT on O2 at home.
Confirmed PCP, RX and insurance. Pt unable to verify drug coverage
Pt is very forgetful; [facility] nurse stated she is alert and oriented X3 at home
Pt reported she was independent with ADLs, NS nurse reports she is total care
Has hx of HH at [facility]
Has hx of SNF at a rehab in [place], name unknown, this rehab was chosen because it permits pts to smoke
Pt is wheelchair bound
PCP:Rodney Tobar
Rx: [facility] [address]
Plan: DC back to if possible
--- NOTE | 2025-03-21 12:37 | W.PN.HOSP.TC ---
Today's Communication/Plan
-
monitor vitals
see plan
cw nebs,decadron
Will need home O2 evaluation prior to discharge
Ethacrynic acid as needed
Discussed with daughter over the phone
Assessment / Plan
Assessment / Plan
General: Well Developed, Well Nourished and No Apparent Distress
HEENT: NormoCephalic, Moist mucous membranes and Atraumatic
Respiratory: Decreased Breath Sounds
Cardiac: S1/S2 and Regular Rhythm
GI: Soft, Non Tender, Non Distended and Normal Bowel Sounds
Musculoskeletal: +edema (Bilateral lower extremities edema)
Neuro: AO x 3 and Nonfocal/grossly intact
Psych: Calm
Acute hypoxic respiratory failure likely multifactorial secondary to COPD exacerbation and possible acute on chronic CHF with preserved EF
- Chest x-ray with impression of Mild bibasilar airspace opacities which are overall similar appearance to prior which would favor atelectasis/scarring, however pneumonia cannot be excluded.Cardiomegaly, stable from prior.
Continue Decadron
Standing and as needed DuoNebs
- Continue supplemental oxygen to keep sat greater than 87, wean as tolerated
echo 03/20 with stage 1 diastolic dysfx. Has seen by [facility] cardiology in past
elevated probnp
Used to be on ethacrynic acid as needed however now it is not there on med rec
need home o2 eval
# Cigarette nicotine dependency
-Denied nicotine patch
#Chronic ambulatory dysfunction
-Patient is wheelchair-bound by choice
-PT/OT rec home health
#History of PAD/PVD
- Aspirin continued
- Statin continued
DVT prophylaxis -subcu Lovenox
DNR
I spent a total of 51 minutes with the patient or on the floor. More than 50% of this time involved counseling and coordination of care.
Anticipated Discharge: 24 - 48 hours
Subjective/Interval History
-
Date of Service: March 21, 2025
denies pain
Objective Data
-
Labs:
Laboratory Results
03/21/25
08:51
WBC 9.4
Hgb 13.8
Hct 43.0
Plt Count 330
Sodium 139
Potassium 5.1
Chloride 99
Carbon Dioxide 34 H
BUN 50 H
Creatinine 1.0
Glucose 102 H
Calcium 8.5
Vital Signs:
Vital Signs
Temp Pulse Resp BP Pulse Ox
98.5 F 60 16 142/69 94
03/21/25 11:00 03/21/25 11:00 03/21/25 11:00 03/21/25 11:00 03/21/25 11:00
I&O
03/20/25 03/21/25 03/22/25
06:59 06:59 06:59
Intake Total 180 / 180 480 / 480 120 / 120
Balance 180 / 180 480 / 480 120 / 120
[2025-03-21 15:00] VITALS: BP 143/60
[2025-03-21] MEDS: LOVENOX 40 MG SC (17:00)
[2025-03-21] MEDS: CRESTOR 20 MG PO (17:01)
--- NOTE | 2025-03-21 17:19 | PTCARENOTE ---
Assumed care of patient at 3pm. No changes in assessment. Plan of care ongoing.
[2025-03-21 19:55] VITALS: BP 158/77
[2025-03-21 23:00] VITALS: BP 152/78
[2025-03-22] MEDS: DECADRON 4 MG IV ×2 (03:07→12:12)
[2025-03-22 06:00] VITALS: BMI 27.3
[2025-03-22 07:00] VITALS: BP 162/64
[2025-03-22] MEDS: DUONEB 3 ML INH ×3 (07:58→15:00)
[2025-03-22 08:28] LABS: Hematocrit 40.4 % (37.0-47.0); Hemoglobin 12.7 g/dL (12.0-16.0); Mean Corp Hgb Conc. 31.4 g/dL (33.0-37.0); Mean Corpuscular Volume 92.9 fL (81.0-99.0); Nucleated Red Blood Cells % 0 %; Platelet Count 330 10^3/uL (130-400); Red Cell Dist. Width 14.1 % (11.5-14.5)
[2025-03-22] MEDS: LOW STRENGTH ASPIRIN 81 MG PO (08:53)
[2025-03-22 08:57] LABS: Blood Urea Nitrogen 46 mg/dl (7-17); Calcium 8.1 mg/dl (8.4-10.2); Chloride 97 mmol/L (98-107); Estimated Creatinine Clearance 44 ml/min; Glucose 102 mg/dl (70-99); Potassium 4.5 mmol/L (3.5-5.1); Sodium 136 mmol/L (135-145); eGFR 56.95
[2025-03-22 09:25] LABS: Carbon Dioxide 37 mmol/L (22-30)
[2025-03-22 11:00] VITALS: BP 136/60
--- NOTE | 2025-03-22 11:37 | W.PN.HOSP.TC ---
Today's Communication/Plan
-
Monitor vital signs see plan
Patient need 2 L nasal cannula per home O2 evaluation. commercial manager aware
Transition IV steroids to oral on discharge
ethacrynic acid as needed
DC back to [place], immigration case worker aware
Discussed with daughter
Assessment / Plan
Assessment / Plan
General: Well Developed, Well Nourished and No Apparent Distress
HEENT: NormoCephalic, Moist mucous membranes and Atraumatic
Respiratory: Decreased Breath Sounds
Cardiac: S1/S2 and Regular Rhythm
GI: Soft, Non Tender, Non Distended and Normal Bowel Sounds
Musculoskeletal: +edema (Bilateral lower extremities edema)
Neuro: AO x 3 and Nonfocal/grossly intact
Psych: Calm
Acute hypoxic respiratory failure likely multifactorial secondary to COPD exacerbation and possible acute on chronic CHF with preserved EF
- Chest x-ray with impression of Mild bibasilar airspace opacities which are overall similar appearance to prior which would favor atelectasis/scarring, however pneumonia cannot be excluded.Cardiomegaly, stable from prior.
Switch Decadron to prednisone with taper
Standing and as needed DuoNebs
Patient is in need of oxygen at 2 liters/minute via nasal cannula continuously due to pulse oximetry of 87% on room air at rest. Oxygen will help to improve hypoxemia. Patient is mobile within the home. DuoNeb therapy has been tried and is
ineffective in treating hypoxemia related symptoms. Oxygen is needed to improve symptoms.
echo 03/20 with stage 1 diastolic dysfx. Has seen by [facility] cardiology in past
elevated probnp
Used to be on ethacrynic acid as needed however now it is not there on med rec. per daughter patient is on prn ethacrynic acid
Need home O2 set
# Cigarette nicotine dependency
-Denied nicotine patch
#Chronic ambulatory dysfunction
-Patient is wheelchair-bound by choice
-PT/OT rec home health
#History of PAD/PVD
- Aspirin continued
- Statin continued
DVT prophylaxis -subcu Lovenox
DNR
Anticipated Discharge: Today
Subjective/Interval History
-
Date of Service: March 22, 2025
denies chest pain
Objective Data
-
Labs:
Laboratory Results
03/22/25
07:59
WBC 8.3
Hgb 12.7
Hct 40.4
Plt Count 330
Sodium 136
Potassium 4.5
Chloride 97 L
Carbon Dioxide 37 H
BUN 46 H
Creatinine 1.0
Glucose 102 H
Calcium 8.1 L
Vital Signs:
Vital Signs
Temp Pulse Resp BP Pulse Ox
98.3 F 62 18 162/64 95
03/22/25 07:00 03/22/25 11:30 03/22/25 11:30 03/22/25 07:00 03/22/25 11:30
I&O
03/21/25 03/22/25 03/23/25
06:59 06:59 06:59
Intake Total 480 / 480 360 / 360
Output Total 50 / 50
Balance 480 / 480 360 / 360 -50 / -50
[2025-03-22 15:00] VITALS: BP 137/59
--- NOTE | 2025-03-22 15:01 | W.DCSUMMARY ---
Discharge Summary
Discharge Data
Date of Admission: 03/19/25
Date of Discharge: 03/22/25
-
Pending Results: No
Hospital Course
79-year-old female with past medical history of PAD, PVD, chronic amatory dysfunction, COPD, CHF, current smoker came to the hospital with acute hypoxic respiratory failure multifactorial secondary to COPD exacerbation and acute on chronic
congestive heart failure exacerbation. Patient had sulfa allergy so was treated with ethacrynic acid for her CHF exacerbation. For COPD exacerbation she was put on DuoNebs along with IV steroids which was later transitioned to p.o. prednisone with
taper prior to discharge. Echocardiogram was done which showed stage I diastolic dysfunction. On discharge patient instructed to follow-up closely with cardiology and pulmonary outpatient. Home O2 evaluation was also done and patient qualified
for 2 L of nasal cannula prior to discharge. Once her symptoms continue to improve, she was then discharged with instructions to follow-up with all of her physicians outpatient.
Discharge Plan
-
Patient Disposition: Other
Discharge Diagnosis/Procedures: Acute hypoxic respiratory failure likely multifactorial secondary to COPD exacerbation and possible acute on chronic CHF with preserved EF
Condition: Fair
Diet: As tolerated
Activity: As tolerated
Driving Restrictions: No driving
Referrals:
Ari Brody MD [Active, Cardiology] - in two weeks
RUBEN WALLS MD [Family Provider, Internal Medicine] - in less than 1 week
Bassam aMdrid MD [Active, Pulmonary Medicine] - in two weeks
Prescriptions:
New
ipratropium-albuterol 0.5 mg-3 mg(2.5 mg base)/3 mL Solution For Nebulization
3 ml inhalation R Q4HPRN PRN (Reason: shortness of breath/wheezing) Qty: 0 0RF
ipratropium-albuterol 0.5 mg-3 mg(2.5 mg base)/3 mL Solution For Nebulization
3 ml inhalation BID Qty: 180 0RF
budesonide 0.5 mg/2 mL Suspension For Nebulization
0.5 mg inhalation R BID Qty: 60 0RF
ethacrynic acid [Edecrin] 25 mg tablet
50 mg PO DAILY PRN (Reason: weight gain>3lb or sob) Qty: 30 0RF
Rx Instructions:
For weight gain > 3 pounds in 24 hours or shortness of breath
prednisone 10 mg Tablet
See Rx Instructions .ROUTE .COMPLEX Qty: 30 0RF
Rx Instructions:
Take By Mouth:
40 mg daily x3 days, 30 mg daily x3 days,
20 mg daily x3 days, 10 mg daily x3 days.
Continued
aspirin 81 mg Tablet,Chewable
81 mg PO DAILY Qty: 0 0RF
calcium carbonate 500 mg calcium (1,250 mg) Tablet
1,500 mg PO DAILY Qty: 0 0RF
rosuvastatin 20 mg Tablet
20 mg PO QPM Qty: 0 0RF
acetaminophen [Tylenol] 325 mg Tablet
650 mg PO Q6HPRN PRN (Reason: MILD PAIN)
magnesium hydroxide [Milk of Magnesia] 400 mg/5 mL Suspension
2,400 mg PO DAILYPRN PRN (Reason: CONSTIPATION)
Discharge Orders:
Discharge Patient (As Directed); Ordered 03/22/25
Ordered By: Nixon Carroll
Discharge Date and Time
Discharge Date/Time: 03/22/25 20:00
Print Language: ROMANIAN
[2025-03-22 15:30] VITALS: BP 137/59
[2025-03-22] MEDS: LOVENOX 40 MG SC (17:09)
[2025-03-22] MEDS: CRESTOR 20 MG PO (17:10)
--- NOTE | 2025-03-22 17:15 | CM ---
F/U: BRIDGETTE Farnsworth was told that patient is new oxygen and can discharge today. Patient is from [facility]- [address] BRIDGETTE called, confirmed, and then called daughter (Dtr) who agreed to [facility] for the O2 company. Oxygen Home Test
complete late morning so [facility] received all clinical then informed [facility] that that oxygen will be delivered there from [facility]. [facility] delivered this around 5pm and Transport arranged for 7pm
Report: #[phone]
Fax: #[phone].
[facility] asked medications to be sent to patient's Pharmacy: [facility]. Dtr updated.
PLAN: Return to Assisted Living w/ O2 from [facility].
[2025-03-22 19:15] VITALS: BP 153/70
== END 2025-03-22 20:00 | disposition home or self-care (01) | DRG 190 ==
LOC: 4 EAST ACU 14:12
PROVIDERS: Registered Nurse; ADMITTING PHYSICIAN Hospitalist; ATTENDING PHYSICIAN Internal Medicine; EMERGENCY PHYSICIAN Emergency Medicine; FAMILY PHYSICIAN Internal Medicine
DX: J44.1 Chronic obstructive pulmonary disease with (acute) exacerbation (principal); I50.33 Acute on chronic diastolic (congestive) heart failure; J96.01 Acute respiratory failure with hypoxia; I73.9 Peripheral vascular disease, unspecified; Z99.3 Dependence on wheelchair; Z88.2 Allergy status to sulfonamides; F17.210 Nicotine dependence, cigarettes, uncomplicated; E78.00 Pure hypercholesterolemia, unspecified; Z79.82 Long term (current) use of aspirin; Z66 Do not resuscitate; Z85.3 Personal history of malignant neoplasm of breast; I25.10 Atherosclerotic heart disease of native coronary artery without angina pectoris; M81.0 Age-related osteoporosis without current pathological fracture; Z11.52 Encounter for screening for COVID-19
CPT/HCPCS: 71046; 80048; 80053; 80061; 82248; 83735; 83880; 84439; 84443; 85025; 85027; 87070; 87502; 87811; 93005; 93306; 94640; 97162; 97166; 97530; 99285; 99406